=== PATIENT | male | born 1970 | race African-American/Black ===

== ENCOUNTER 2016-12-26 21:50 | Emergency (ER) | payer OTHER ==
[~2016-12-26] VITALS: Ht 167.6 cm; Wt 86.3 kg
[~2016-12-26 21:50] MED LIST: /MOXI40TA OR; AMLO10TAB OR; FLON0.05; HYDR25TA6 OR
[2016-12-26] MEDS ORDERED: LOSA25TA8 PO (22:06)
[2016-12-26] MEDS ORDERED: TOPR25TA PO (22:06)
[2016-12-26] MEDS ORDERED: CLON-412 PO (22:12)
[2016-12-26] MEDS ORDERED: CHLO25TA GT (22:12)
[2016-12-26] MEDS ORDERED: ASPI325T24 PO (22:12)
[2016-12-26] MEDS ORDERED: KETOROLAC 30 MG/ML VIAL (J1885) IV ONE (22:30)
[2016-12-26] MEDS ORDERED: cloNIDine 0.2 MG TAB PO ONE (22:30)
[2016-12-26 23:05] VITALS: BP 217/127
[2016-12-26 23:06] LABS: INR 0.98
[2016-12-26 23:07] LABS: BASO % 0.6 % (0.0-1.0); EOS # 0.4 K/mm3 (0.0-0.50); EOS % 4.7 % (0.0-3.0); LARGE UNSTAINED CELL # 0.2 K/mm3 (0.0-0.4); LARGE UNSTAINED CELL % 2.1 % (0.0-4.0); LYMPH # 3.2 K/mm3 (1.5-4.5); LYMPH % 36.1 % (24.0-44.0); MEAN CORPUSCULAR HEMOGLOBIN 26.6 pg (27.0-33.0); MEAN CORPUSCULAR HGB CONC 33.5 g/dl (32.0-36.5); MEAN CORPUSCULAR VOLUME 79.6 fl (80.0-96.0); MONO # 0.5 K/mm3 (0.0-0.8); MONO % 6.3 % (0.0-5.0); NEUTROPHILS # 4.1 K/mm3 (1.8-7.7); NEUTROPHILS % 50.2 % (36.0-66.0); PLATELET COUNT, AUTOMATED 207 k/mm3 (150-450); RED CELL DISTRIBUTION WIDTH 14.5 % (11.5-14.5); WHITE BLOOD COUNT 8.3 K/mm3 (4.0-10.0)
[2016-12-26 23:37] LABS: ALBUMIN 3.4 GM/DL (3.2-5.2); ALBUMIN/GLOBULIN RATIO 1.03 (1.00-1.93); BILIRUBIN,DIRECT 0.1 MG/DL (0.0-0.2); BILIRUBIN,TOTAL 0.4 MG/DL (0.2-1.0); CALCIUM LEVEL 8.7 MG/DL (8.5-10.1); CREATININE FOR GFR 1.77 MG/DL (0.70-1.30); FREE T4 1.2 NG/DL (0.76-1.46); GLOMERULAR FILTRATION RATE 53.9 (>60); POTASSIUM SERUM 3.3 MEQ/L (3.5-5.1); TOTAL PROTEIN 6.7 GM/DL (6.4-8.2)
[2016-12-27] MEDS ORDERED: ASPIRIN 325 MG TAB PO ONE (00:30)
[2016-12-27 01:08] LABS: ABG BASE EXCESS 1.9 (-2.0-2.0); ABG HCO3 26.5 MEQ/L (22.0-26.0); ABG PARTIAL PRESSURE CO2 41.4 mmHg (35.0-45.0); ABG PARTIAL PRESSURE O2 81.6 mmHg (75.0-100.0); ABG STANDARD HCO3 26.1 MEQ/L (22.0-26.0); ABG TOTAL CO2 27.8 MEQ/L (22.0-29.0); ABG pH (ARTERIAL) 7.424 UNITS (7.350-7.450)
[2016-12-27] MEDS ORDERED: NS 500 ML IV ONE (02:15)
[2016-12-27 02:29] VITALS: BP 166/98
[2016-12-27] MEDS ORDERED: KETO10TAB PO (02:37)
--- NOTE | 2016-12-27 07:35 | ECGEPIP ---
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
--- NOTE | 2016-12-27 07:57 | ECGEPIP ---
Stationary ECG Study [facility] - ED Test Date: 2016-12-27 Pat Name: SIS MIRANDA Department: Room: - Gender: M Manager Science: lurdes : 1970 Requested By: NANCY MCGOVERN Order Number: [id number] Reading MD: Anju Barragan Measurements Intervals [place] Rate: 74 P: 29 CO: 175 QRS: -17 QRSD: 89 T: 184 QT: 403 QTc: 447 Interpretive Statements SINUS RHYTHM S1-S2-S3 PATTERN, CONSISTENT WITH PULMONARY DISEASE, RVH, OR NORMAL VARIANT LEFT VENTRICULAR HYPERTROPHY AND ST-T CHANGE VS ISCHEMIA DECREASED RATE 12/26/16 22:21 Electronically Signed On 12-27-2016 7:57:37 EDT by Anju Barragan
--- NOTE | 2016-12-27 08:23 | REP ---
Portable chest x-ray: Single view. History: Chest pain. Comparison study: May 30, 2014. Findings: The lungs are well inflated and clear. Pleural angles are sharp. Heart size is normal. Pulmonary vasculature is not increased. No significant bony abnormality is seen. Impression: Negative portable chest. Signed by David Burden MD 12/27/2016 08:14 A
== END 2016-12-27 02:50 | disposition home or self-care (01) ==
LOC: M ED 21:50
DX: R07.89 Other chest pain (principal); I10 Essential (primary) hypertension; R07.1 Chest pain on breathing; Z79.82 Long term (current) use of aspirin; Z79.899 Other long term (current) drug therapy; Z88.0 Allergy status to penicillin
CPT/HCPCS: 36415; 71010; 80048; 80076; 82550; 82553; 82803; 83690; 83880; 84439; 84443; 85025; 85610; 85730; 93005; 93041; 94760; 96360; 96374; 99285; J1885

== ENCOUNTER → 2019-09-24 | Outpatient (CLI) | payer OTHER ==
[~2019-09-24] MED LIST changes: -/MOXI40TA OR; +ASPI-255 PO; +AVEL1TAB2 OR; +CHLO25TA GT; +CLON-412 PO; +KETO10TAB PO; +LOSA25TA14 PO; +PROHANCE 279.3MG/ML 15ML VIAL As Ordered ONE; +PROHANCE 279.3MG/ML 5ML VIAL As Ordered ONE; +TOPR25TA PO
--- NOTE | 2019-09-24 17:52 | REP ---
MRI STUDY OF THE SOFT TISSUES OF THE NECK WITHOUT AND WITH IV CONTRAST: HISTORY: Neoplasm of unspecified behavior. Rule out midline lipoma versus other posterior neck mass. GADOLINIUM ENHANCEMENT DOSE: 10 mL of intravenous ProHance. MRI FINDINGS: Skin markers are affixed to the skin at the site of the palpable lump. This is just to the left of midline in the posterior neck soft tissues. In this location, there is a subcutaneous nodule measuring 1.1 x 0.9 x 0.8 cm. There is as a low T1 low T2 signal intensity enhancing margin or capsule. Its interior contains relatively high T1, high T2 signal intensity material. Its margins are smooth. It is not a lipoma. It may be a partially necrotic lymph node. There is an adjacent enhancing lymph node which is normal in size and appearance, 7 mm in diameter. There are some anterior cervical and a few small normal-sized posterior cervical lymph nodes visible in the neck bilaterally. No other soft tissue mass or nodule is appreciated. Skeletal muscle signal intensity is normal. There are mild degenerative disc changes in the cervical spine. There is a right paracentral small disc protrusion at C4-5. Study is otherwise unremarkable. IMPRESSION: Slightly hypertrophied enhancing lymph node possibly centrally necrotic corresponding to palpable abnormality in the left posterior neck. Consider ultrasound-guided needle biopsy procedure. Electronically Signed by David Burden MD 09/24/2019 06:51 P
== END ==
LOC: M RAD 12:49
PROVIDERS: ATTEND Dermatology
DX: D49.2 Neoplasm of unspecified behavior of bone, soft tissue, and skin (principal); N18.3 Chronic kidney disease, stage 3 (moderate)
CPT/HCPCS: 36415; 70543; 80069; A9576

== ENCOUNTER → 2019-09-24 | Outpatient (CLI) | payer OTHER ==
[~2019-09-24] MED LIST changes: -PROHANCE 279.3MG/ML 15ML VIAL As Ordered ONE; -PROHANCE 279.3MG/ML 5ML VIAL As Ordered ONE
[2019-09-24 11:45] LABS: ALBUMIN 3.7 GM/DL (3.2-5.2); CALCIUM LEVEL 8.9 MG/DL (8.5-10.1); CREATININE FOR GFR 2.09 MG/DL (0.70-1.30); GLOMERULAR FILTRATION RATE 36.4 (>60); PHOSPHORUS LEVEL 3.5 MG/DL (2.5-4.9); POTASSIUM SERUM 4.5 MEQ/L (3.5-5.1)
== END ==
LOC: M LAB 10:31
PROVIDERS: ATTEND Internal Medicine Nephrology
DX: N18.3 Chronic kidney disease, stage 3 (moderate) (principal)

== ENCOUNTER → 2022-06-14 | Outpatient (CLI) | payer OTHER ==
[~2022-06-14] MED LIST changes: +LOSA25TA13 PO; -LOSA25TA14 PO
[2022-06-14 16:48] LABS: BASO # 0.1 10^3/uL (0.0-0.2); BASO % 0.6 % (0.0-1.0); EOS # 0.4 10^3/uL (0.0-0.5); EOS % 4.3 % (0.0-3.0); HEMATOCRIT 46.3 % (42.0-52.0); HEMOGLOBIN 14.9 g/dl (13.5-17.5); LYMPH # 3.2 10^3/uL (1.5-5.0); LYMPH % 37.8 % (24.0-44.0); MEAN CORPUSCULAR HGB CONC 32.2 g/dl (32.0-36.5); MEAN CORPUSCULAR VOLUME 80.9 fl (80.0-96.0); MONO # 0.6 10^3/uL (0.0-0.8); MONO % 7.1 % (2.0-8.0); NEUTROPHILS # 4.2 10^3/uL (1.5-8.5); NEUTROPHILS % 49.6 % (36.0-66.0); PLATELET COUNT, AUTOMATED 258 10^3/uL (150-450); RED BLOOD COUNT 5.72 10^6/uL (4.30-6.10); WHITE BLOOD COUNT 8.4 10^3/uL (4.0-10.0)
[2022-06-14 17:10] LABS: ALBUMIN 3.4 G/DL (3.2-5.2); ALKALINE PHOSPHATASE 54 U/L (46-116); ALT/SGPT 22 U/L (7.0-40); AST/SGOT 24 U/L (<34); BILIRUBIN,TOTAL 0.5 MG/DL (0.3-1.2); BLOOD UREA NITROGEN 26 MG/DL (9-23); CALCIUM LEVEL 8.6 MG/DL (8.5-10.1); CARBON DIOXIDE LEVEL 28 MMOL/L (20-31); CHLORIDE LEVEL 102 MMOL/L (98-107); CHOLESTEROL LEVEL 277 MG/DL (<200); CHOLESTEROL RISK RATIO 7.52 (<5); CREATININE FOR GFR 2.55 MG/DL (0.70-1.30); GLOMERULAR FILTRATION RATE 28.6 (>56); GLUCOSE, FASTING 103 MG/DL (60-100); HDL CHOLESTEROL 36.8 MG/DL (>40); NON-HDL-C 240 MG/DL; POTASSIUM SERUM 4.3 MMOL/L (3.5-5.1); SODIUM LEVEL 139 MMOL/L (136-145); TOTAL PROTEIN 6.9 G/DL (5.7-8.2); TRIGLYCERIDES LEVEL 420 MG/DL (<150)
== END ==
LOC: M LAB 06-13 18:31
PROVIDERS: ATTEND Psychiatry & Neurology Neurology
DX: E78.5 Hyperlipidemia, unspecified (principal); E11.9 Type 2 diabetes mellitus without complications; Z86.73 Personal history of transient ischemic attack (TIA), and cerebral infarction without residual deficits

== ENCOUNTER → 2022-06-14 | Outpatient (CLI) | payer OTHER ==
[2022-06-14 16:44] LABS: BASO # 0.1 10^3/uL (0.0-0.2); BASO % 0.8 % (0.0-1.0); EOS # 0.4 10^3/uL (0.0-0.5); EOS % 4.2 % (0.0-3.0); HEMATOCRIT 46.3 % (42.0-52.0); HEMOGLOBIN 14.8 g/dl (13.5-17.5); LYMPH # 3.4 10^3/uL (1.5-5.0); LYMPH % 38.3 % (24.0-44.0); MEAN CORPUSCULAR HEMOGLOBIN 25.9 pg (27.0-33.0); MEAN CORPUSCULAR VOLUME 80.9 fl (80.0-96.0); MONO # 0.6 10^3/uL (0.0-0.8); MONO % 7.3 % (2.0-8.0); NEUTROPHILS # 4.3 10^3/uL (1.5-8.5); NEUTROPHILS % 48.6 % (36.0-66.0); PLATELET COUNT, AUTOMATED 248 10^3/uL (150-450); RED BLOOD COUNT 5.72 10^6/uL (4.30-6.10); WHITE BLOOD COUNT 8.8 10^3/uL (4.0-10.0)
[2022-06-14 16:53] LABS: CREATININE, URINE 130.7 MG/DL; CREATININE,RANDOM URINE 130.7 MG/DL
[2022-06-14 17:07] LABS: MAU/CREAT RATIO 898.2 MCG/MG (0.0-30.0)
[2022-06-14 17:13] LABS: ALBUMIN 3.4 G/DL (3.2-5.2); BILIRUBIN,TOTAL 0.5 MG/DL (0.3-1.2); CALCIUM LEVEL 8.5 MG/DL (8.5-10.1); CREATININE FOR GFR 2.55 MG/DL (0.70-1.30); GLOMERULAR FILTRATION RATE 28.6 (>56); POTASSIUM SERUM 4.3 MMOL/L (3.5-5.1); PTH INTACT 107.1 PG/ML (18.5-88.0); TOTAL PROTEIN 6.9 G/DL (5.7-8.2)
== END ==
LOC: M LAB 06-13 18:24
PROVIDERS: ATTEND Internal Medicine Nephrology
DX: N25.81 Secondary hyperparathyroidism of renal origin (principal); N18.4 Chronic kidney disease, stage 4 (severe); I12.9 Hypertensive chronic kidney disease with stage 1 through stage 4 chronic kidney disease, or unspecified chronic kidney disease

== ENCOUNTER → 2022-09-30 | Outpatient (CLI) | payer OTHER ==
[2022-09-30 16:48] LABS: HEMATOCRIT 49.7 % (42.0-52.0); HEMOGLOBIN 16.1 g/dl (13.5-17.5); MEAN CORPUSCULAR HGB CONC 32.4 g/dl (32.0-36.5); MEAN CORPUSCULAR VOLUME 77.2 fl (80.0-96.0); PLATELET COUNT, AUTOMATED 307 10^3/uL (150-450); RED BLOOD COUNT 6.44 10^6/uL (4.30-6.10); WHITE BLOOD COUNT 11.2 10^3/uL (4.0-10.0)
[2022-09-30 17:18] LABS: ALBUMIN 3.5 G/DL (3.2-5.2); BILIRUBIN,TOTAL 0.4 MG/DL (0.3-1.2); CALCIUM LEVEL 8.9 MG/DL (8.5-10.1); CREATININE FOR GFR 2.98 MG/DL (0.70-1.30); GLOMERULAR FILTRATION RATE 23.9 (>56); POTASSIUM SERUM 3.8 MMOL/L (3.5-5.1)
[2022-09-30 17:20] LABS: PTH INTACT 134.9 PG/ML (18.5-88.0)
== END ==
LOC: M LAB 15:32
PROVIDERS: ATTEND Internal Medicine Nephrology
DX: N18.4 Chronic kidney disease, stage 4 (severe) (principal); I12.9 Hypertensive chronic kidney disease with stage 1 through stage 4 chronic kidney disease, or unspecified chronic kidney disease; N25.81 Secondary hyperparathyroidism of renal origin

== ENCOUNTER → 2022-10-04 | Outpatient (REF) | payer OTHER ==
[2022-10-04 14:03] LABS: CREATININE, URINE 142.3 MG/DL
== END ==
LOC: M LAB REF 11:59
PROVIDERS: ATTEND Internal Medicine Nephrology
DX: N18.4 Chronic kidney disease, stage 4 (severe) (principal); I12.9 Hypertensive chronic kidney disease with stage 1 through stage 4 chronic kidney disease, or unspecified chronic kidney disease; N25.81 Secondary hyperparathyroidism of renal origin

== ENCOUNTER → 2023-02-09 | Outpatient (CLI) | payer OTHER ==
[2023-02-09 15:57] LABS: BASO # 0.1 10^3/uL (0.0-0.2); BASO % 0.6 % (0.0-1.0); EOS # 0.6 10^3/uL (0.0-0.5); EOS % 5.6 % (0.0-3.0); HEMATOCRIT 46.8 % (42.0-52.0); LYMPH # 3.4 10^3/uL (1.5-5.0); LYMPH % 31.1 % (24.0-44.0); MEAN CORPUSCULAR HEMOGLOBIN 24.8 pg (27.0-33.0); MEAN CORPUSCULAR HGB CONC 32.1 g/dl (32.0-36.5); MEAN CORPUSCULAR VOLUME 77.5 fl (80.0-96.0); MONO # 0.9 10^3/uL (0.0-0.8); MONO % 8.6 % (2.0-8.0); NEUTROPHILS # 5.9 10^3/uL (1.5-8.5); NEUTROPHILS % 53.6 % (36.0-66.0); PLATELET COUNT, AUTOMATED 281 10^3/uL (150-450); RED BLOOD COUNT 6.04 10^6/uL (4.30-6.10)
[2023-02-09 16:27] LABS: CREATININE, URINE 58.5 MG/DL; CREATININE,RANDOM URINE 58.5 MG/DL
[2023-02-09 16:31] LABS: ALBUMIN 2.9 G/DL (3.2-5.2); BILIRUBIN,TOTAL 0.4 MG/DL (0.3-1.2); CALCIUM LEVEL 8.4 MG/DL (8.5-10.1); CREATININE FOR GFR 2.72 MG/DL (0.70-1.30); GLOMERULAR FILTRATION RATE 26.4 (>56); POTASSIUM SERUM 4.1 MMOL/L (3.5-5.1); PTH INTACT 270.7 PG/ML (18.5-88.0); TOTAL PROTEIN 6.2 G/DL (5.7-8.2)
[2023-02-09 16:40] LABS: MAU/CREAT RATIO 1958.9 MCG/MG (0.0-30.0)
== END ==
LOC: M LAB 15:11
PROVIDERS: ATTEND Internal Medicine Nephrology
DX: N18.4 Chronic kidney disease, stage 4 (severe) (principal); I12.9 Hypertensive chronic kidney disease with stage 1 through stage 4 chronic kidney disease, or unspecified chronic kidney disease; N25.81 Secondary hyperparathyroidism of renal origin

== ENCOUNTER → 2023-03-10 | Outpatient (CLI) | payer OTHER ==
[2023-03-10 15:36] LABS: HEMATOCRIT 50.4 % (42.0-52.0); HEMOGLOBIN 16.4 g/dl (13.5-17.5); MEAN CORPUSCULAR HGB CONC 32.5 g/dl (32.0-36.5); MEAN CORPUSCULAR VOLUME 76.8 fl (80.0-96.0); PLATELET COUNT, AUTOMATED 253 10^3/uL (150-450); RED BLOOD COUNT 6.56 10^6/uL (4.30-6.10); WHITE BLOOD COUNT 11.1 10^3/uL (4.0-10.0)
[2023-03-10 16:08] LABS: BILIRUBIN,TOTAL 0.3 MG/DL (0.3-1.2); CALCIUM LEVEL 9.2 MG/DL (8.5-10.1); CREATININE FOR GFR 2.61 MG/DL (0.70-1.30); GLOMERULAR FILTRATION RATE 27.7 (>56); PHOSPHORUS LEVEL 3.1 MG/DL (2.5-4.9); PTH INTACT 188.7 PG/ML (18.5-88.0); TOTAL PROTEIN 6.7 G/DL (5.7-8.2)
== END ==
LOC: M LAB 14:45
PROVIDERS: ATTEND Internal Medicine Nephrology
DX: N25.81 Secondary hyperparathyroidism of renal origin (principal); N18.4 Chronic kidney disease, stage 4 (severe); I12.9 Hypertensive chronic kidney disease with stage 1 through stage 4 chronic kidney disease, or unspecified chronic kidney disease

== ENCOUNTER → 2023-03-13 | Outpatient (REF) | payer OTHER ==
[~2023-03-13] MED LIST changes: +ATOR40TA75 PO; +ATOR80TA59 PO; +BLOO-76 MC; +CALC1CAP31 PO; +CLOP75TA2 PO; +FENO145T7 PO; +FISH1CAP26 PO; +HYDR-3910 PO; +INSUHUMDS SC; +JARD1TAB3 PO; +LANC1COM MC; +LANTINJ4 SC; +LOSA100T46 PO; +MAGN400T2 PO; +METO1TAB33 PO; +NOVO32MI XX; +POTA10CA60 PO
[2023-03-14 19:36] LABS: CREATININE, URINE 50.2 MG/DL; CREATININE,RANDOM URINE 50.2 MG/DL
== END ==
LOC: M LAB REF 18:20
PROVIDERS: ATTEND Internal Medicine Nephrology
DX: N25.81 Secondary hyperparathyroidism of renal origin (principal); N18.4 Chronic kidney disease, stage 4 (severe); I12.9 Hypertensive chronic kidney disease with stage 1 through stage 4 chronic kidney disease, or unspecified chronic kidney disease

== ENCOUNTER 2023-03-16 10:00 | Observation (INO) | payer OTHER ==
[~2023-03-16] VITALS: Ht 167.6 cm; Wt 100.6 kg
[~2023-03-16 10:00] MED LIST changes: -ATOR40TA75 PO; -ATOR80TA59 PO; -BLOO-76 MC; -CALC1CAP31 PO; -CLOP75TA2 PO; -FENO145T7 PO; -FISH1CAP26 PO; -HYDR-3910 PO; -INSUHUMDS SC; -JARD1TAB3 PO; -LANC1COM MC; -LANTINJ4 SC; -LOSA100T46 PO; -MAGN400T2 PO; -METO1TAB33 PO; -NOVO32MI XX; -POTA10CA60 PO
[2023-03-16] MEDS ORDERED: JARD1TAB3 PO (10:22)
[2023-03-16] MEDS ORDERED: POTA10CA60 PO (10:22)
[2023-03-16] MEDS ORDERED: MAGN400T2 PO (10:22)
[2023-03-16] MEDS ORDERED: ATOR40TA75 PO (10:22)
[2023-03-16] MEDS ORDERED: CALC1CAP31 PO (10:22)
[2023-03-16 11:57] LABS: BASO # 0.1 10^3/uL (0.0-0.2); BASO % 0.7 % (0.0-1.0); EOS # 0.5 10^3/uL (0.0-0.5); EOS % 5.1 % (0.0-3.0); HEMATOCRIT 43.6 % (42.0-52.0); LYMPH # 2.7 10^3/uL (1.5-5.0); LYMPH % 30.6 % (24.0-44.0); MEAN CORPUSCULAR HEMOGLOBIN 24.7 pg (27.0-33.0); MEAN CORPUSCULAR HGB CONC 32.1 g/dl (32.0-36.5); MONO # 0.6 10^3/uL (0.0-0.8); MONO % 7.2 % (2.0-8.0); NEUTROPHILS # 4.9 10^3/uL (1.5-8.5); NEUTROPHILS % 55.2 % (36.0-66.0); PLATELET COUNT, AUTOMATED 223 10^3/uL (150-450); RED BLOOD COUNT 5.66 10^6/uL (4.30-6.10); WHITE BLOOD COUNT 8.9 10^3/uL (4.0-10.0)
[2023-03-16 12:08] LABS: INR 0.98; PARTIAL THROMBOPLASTIN TIME 26.1 SECONDS (24.8-34.2); PROTHROMBIN TIME 12.7 SECONDS (12.5-14.5)
[2023-03-16] MEDS ORDERED: HumuLIN R (REGULAR) INSULIN (NovoLIN R) **100U/ML** PER UNIT IV ONE (13:05)
[2023-03-16 13:06] LABS: ALBUMIN 2.7 G/DL (3.2-5.2); ALKALINE PHOSPHATASE 69 U/L (46-116); ALT/SGPT 20 U/L (7.0-40); AST/SGOT 19 U/L (<34); BILIRUBIN,DIRECT < 0.1 MG/DL (<0.4); BILIRUBIN,TOTAL 0.3 MG/DL (0.3-1.2); TOTAL PROTEIN 5.6 G/DL (5.7-8.2)
[2023-03-16] MEDS ORDERED: MED REC IN PROGRESS XX SCH (14:20)
[2023-03-16] MEDS ORDERED: METO1TAB33 PO (14:30)
[2023-03-16] MEDS ORDERED: LOSA100T46 PO (14:30)
[2023-03-16 14:49] LABS: BLOOD UREA NITROGEN 34 MG/DL (9-23); CALCIUM LEVEL 8.7 MG/DL (8.5-10.1); CARBON DIOXIDE LEVEL 24 MMOL/L (20-31); CHLORIDE LEVEL 103 MMOL/L (98-107); CREATININE FOR GFR 2.67 MG/DL (0.70-1.30); GLUCOSE, FASTING 305 MG/DL (60-100); POTASSIUM SERUM 4.4 MMOL/L (3.5-5.1); SODIUM LEVEL 137 MMOL/L (136-145)
[2023-03-16] MEDS ORDERED: GLUCOSE 4GM CHEW TABLET PO PRN (14:50)
[2023-03-16] MEDS ORDERED: DEXTROSE 50% 50ML SYRINGE IV PRN (14:50)
[2023-03-16] MEDS ORDERED: GLUCAGON INJ 1MG VIAL SC PRN (14:50)
[2023-03-16] MEDS ORDERED: HOME MED LIST COMPLETE! XX SCH (14:55)
[2023-03-16 15:43] LABS: CHOLESTEROL LEVEL 315 MG/DL (<200); CHOLESTEROL RISK RATIO 7.57 (<5); HDL CHOLESTEROL 41.6 MG/DL (>40); NON-HDL-C 273.4 MG/DL; TRIGLYCERIDES LEVEL 697 MG/DL (<150)
[2023-03-16 15:55] LABS: ERYTHROCYTE SEDIMENTATION RATE 43 mm/hr (0-20)
[2023-03-16 16:25] VITALS: BP 160/102; TEMP 98.1; O2SAT 100
[2023-03-16 16:32] LABS: HEMOGLOBIN A1c 12.4 % (4.0-6.0)
[2023-03-16 16:38] LABS: PROTHROMBIN TIME 12.9 SECONDS (12.5-14.5)
[2023-03-16] MEDS: CLOPIDOGREL 75 MG TAB PO SCH (18:39)
[2023-03-16] MEDS: INSULIN LISPRO (NovoLOG) PER UNIT SC SCH (18:39)
[2023-03-16] MEDS: NS 1,000 ML IV SCH (18:39)
[2023-03-16 19:49] VITALS: BP 178/108; TEMP 97.8; O2SAT 95
[2023-03-16] MEDS ORDERED: **hydrALAZINE** 10 MG TAB PO ONE (20:15)
[2023-03-16] MEDS: POTASSIUM CHLORIDE 10MEQ SR TABLET PO SCH (20:20)
[2023-03-16] MEDS: HEPARIN SOD (PORCINE) 5000UNITS/ML 1ML VIAL/SYRINGE SQ SCH (20:20)
[2023-03-16] MEDS ORDERED: FENOFIBRATE 145MG TABLET (TRICOR) PO SCH (21:00)
[2023-03-16] MEDS ORDERED: INSULIN LISPRO (NovoLOG) PER UNIT SC SCH (21:00)
[2023-03-16] MEDS ORDERED: LEVEMIR (INSULIN DETEMIR) 1 UNITS/0.01ML SC SCH (21:00)
[2023-03-16 21:11] VITALS: BP 174/102
[2023-03-16 23:05] VITALS: BP 156/90; TEMP 97.5; O2SAT 98
[2023-03-17 03:19] VITALS: BP 166/90; TEMP 97; O2SAT 97
[2023-03-17 06:02] LABS: DRVV SCREEN 41.1 SECONDS
[2023-03-17] MEDS: HEPARIN SOD (PORCINE) 5000UNITS/ML 1ML VIAL/SYRINGE SQ SCH ×2 (06:02→13:18)
[2023-03-17 06:03] LABS: PTT LUPUS TYPE ANTICOAG SCREEN 1.05 (0-1.20)
[2023-03-17 07:19] LABS: BASO # 0.1 10^3/uL (0.0-0.2); BASO % 0.6 % (0.0-1.0); EOS # 0.5 10^3/uL (0.0-0.5); EOS % 5.7 % (0.0-3.0); HEMATOCRIT 43.7 % (42.0-52.0); HEMOGLOBIN 14.2 g/dl (13.5-17.5); LYMPH # 3.3 10^3/uL (1.5-5.0); LYMPH % 34.5 % (24.0-44.0); MEAN CORPUSCULAR HEMOGLOBIN 25.4 pg (27.0-33.0); MEAN CORPUSCULAR HGB CONC 32.5 g/dl (32.0-36.5); MEAN CORPUSCULAR VOLUME 78.2 fl (80.0-96.0); MONO # 0.6 10^3/uL (0.0-0.8); MONO % 6.7 % (2.0-8.0); NEUTROPHILS # 4.9 10^3/uL (1.5-8.5); NEUTROPHILS % 51.3 % (36.0-66.0); PLATELET COUNT, AUTOMATED 236 10^3/uL (150-450); RED BLOOD COUNT 5.59 10^6/uL (4.30-6.10); WHITE BLOOD COUNT 9.5 10^3/uL (4.0-10.0)
[2023-03-17 07:57] LABS: CALCIUM LEVEL 7.9 MG/DL (8.5-10.1); CREATININE FOR GFR 2.6 MG/DL (0.70-1.30); GLOMERULAR FILTRATION RATE 27.8 (>56); POTASSIUM SERUM 4.6 MMOL/L (3.5-5.1)
[2023-03-17 08:23] VITALS: BP 162/110; TEMP 97.4; O2SAT 99
[2023-03-17] MEDS: INSULIN LISPRO (NovoLOG) PER UNIT SC SCH ×2 (08:32→13:19)
[2023-03-17] MEDS: POTASSIUM CHLORIDE 10MEQ SR TABLET PO SCH (08:33)
[2023-03-17] MEDS: CLOPIDOGREL 75 MG TAB PO SCH (08:34)
[2023-03-17] MEDS: NS 1,000 ML IV SCH (08:35)
[2023-03-17] MEDS ORDERED: METOPROLOL SUCC (TopROL XL) 100MG *XL* TAB PO SCH (09:00)
[2023-03-17] MEDS ORDERED: MAGNESIUM OXIDE 400MG TAB (MAG-OX) PO SCH (09:00)
[2023-03-17] MEDS ORDERED: cloNIDine 0.1MG TABLET PO SCH (09:00)
[2023-03-17] MEDS ORDERED: amLODIPine 5 MG TAB PO SCH (09:00)
[2023-03-17] MEDS ORDERED: ENTER DRUG NAME HERE (PATIENT'S OWN MED) PO SCH (09:00)
[2023-03-17] MEDS ORDERED: CALCITRIOL 0.25 MCG CAP (S0169) PO SCH (09:00)
[2023-03-17] MEDS ORDERED: ATORVASTATIN 20 MG TAB PO SCH (09:00)
[2023-03-17] MEDS ORDERED: OMEGA-3 1000MG CAPSULE PO SCH (09:00)
[2023-03-17] MEDS ORDERED: LOSARTAN 50MG TABLET PO SCH (09:00)
[2023-03-17] MEDS ORDERED: BLOO-76 MC (11:15)
[2023-03-17] MEDS ORDERED: LANC1COM MC (11:18)
[2023-03-17] MEDS ORDERED: LANTINJ4 SC (11:20)
[2023-03-17] MEDS ORDERED: INSUHUMDS SC (11:22)
[2023-03-17] MEDS ORDERED: ATOR80TA59 PO (11:29)
[2023-03-17] MEDS ORDERED: FISH1CAP26 PO (11:32)
[2023-03-17] MEDS ORDERED: FENO145T7 PO (11:32)
[2023-03-17 13:03] VITALS: BP 158/110; TEMP 97.6; O2SAT 100
[2023-03-17 13:17] VITALS: BP 158/110
[2023-03-17] MEDS ORDERED: CLOP75TA2 PO (15:16)
[2023-03-17] MEDS ORDERED: HYDR-3910 PO (15:16)
[2023-03-17] MEDS ORDERED: NOVO32MI XX (15:42)
[2023-03-17 16:00] VITALS: BP 152/110; TEMP 97.7; O2SAT 100
[2023-03-17] MEDS ORDERED: LEVEMIR (INSULIN DETEMIR) 1 UNITS/0.01ML SC SCH (21:00)
[2023-03-18 14:08] LABS: ANTINUCLEAR ANTIBODIES DIRECT Negative (Negative)
== END 2023-03-17 17:39 | disposition home or self-care (01) ==
LOC: M ED 10:00 → M ED INP 10:01 → ENRESERV 14:14 → M PCU 16:18
PROVIDERS: ADMIT Internal Medicine; ATTEND Internal Medicine
DX: R47.1 Dysarthria and anarthria (principal); G45.9 Transient cerebral ischemic attack, unspecified; I12.9 Hypertensive chronic kidney disease with stage 1 through stage 4 chronic kidney disease, or unspecified chronic kidney disease; N18.30 Chronic kidney disease, stage 3 unspecified; E11.65 Type 2 diabetes mellitus with hyperglycemia; E78.5 Hyperlipidemia, unspecified; G47.33 Obstructive sleep apnea (adult) (pediatric); E78.1 Pure hyperglyceridemia; Z79.4 Long term (current) use of insulin; Z79.899 Other long term (current) drug therapy; Z88.0 Allergy status to penicillin
CPT/HCPCS: 36415; 70450; 70544; 70547; 70551; 71045; 80047; 80048; 80061; 80076; 81240; 83036; 83090; 83735; 85025; 85300; 85301; 85302; 85305; 85306; 85610; 85652; 85730; 86037; 86038; 86140; 86147; 86235; 87635; 93005; 93041; 93306; 94760; 96372; 96374; 99285; J1815

== ENCOUNTER → 2023-04-10 | Outpatient (CLI) | payer OTHER ==
[~2023-04-10] MED LIST changes: +ATOR40TA75 PO; +ATOR80TA59 PO; +BLOO-76 MC; +CALC1CAP31 PO; +CLOP75TA2 PO; +FENO145T7 PO; +FISH1CAP26 PO; +HYDR-3910 PO; +INSUHUMDS SC; +JARD1TAB3 PO; +LANC1COM MC; +LANTINJ4 SC; +LOSA100T46 PO; +MAGN400T2 PO; +METO1TAB33 PO; +NOVO32MI XX; +POTA10CA60 PO
[2023-04-10 13:57] LABS: BASO # 0.1 10^3/uL (0.0-0.2); BASO % 0.5 % (0.0-1.0); EOS # 0.4 10^3/uL (0.0-0.5); EOS % 3.8 % (0.0-3.0); HEMATOCRIT 44.5 % (42.0-52.0); HEMOGLOBIN 14.2 g/dl (13.5-17.5); LYMPH # 2.6 10^3/uL (1.5-5.0); LYMPH % 26.5 % (24.0-44.0); MEAN CORPUSCULAR HEMOGLOBIN 25.2 pg (27.0-33.0); MEAN CORPUSCULAR HGB CONC 31.9 g/dl (32.0-36.5); MEAN CORPUSCULAR VOLUME 78.9 fl (80.0-96.0); MONO # 0.8 10^3/uL (0.0-0.8); MONO % 8.2 % (2.0-8.0); NEUTROPHILS % 60.5 % (36.0-66.0); PLATELET COUNT, AUTOMATED 216 10^3/uL (150-450); RED BLOOD COUNT 5.64 10^6/uL (4.30-6.10)
[2023-04-10 14:23] LABS: THYROID STIMULATING HORMONE 3.745 uIU/ML (0.55-4.78); TOTAL 25(OH) VITAMIN D 21.8 NG/ML (20.0-100.0)
== END ==
LOC: M LAB 11:10
PROVIDERS: ATTEND Nurse Practitioner Family
DX: R53.83 Other fatigue (principal)

== ENCOUNTER → 2023-07-10 | Outpatient (CLI) | payer OTHER ==
[~2023-07-10] MED LIST changes: -HYDR-3910 PO; +HYDR25TA87 PO
[2023-07-10 12:28] LABS: CALCIUM LEVEL 8.1 MG/DL (8.5-10.1); CHOLESTEROL RISK RATIO 7.21 (<5); CREATININE FOR GFR 2.78 MG/DL (0.70-1.30); GLOMERULAR FILTRATION RATE 25.8 (>56); HDL CHOLESTEROL 33.8 MG/DL (>40); LDL CHOLESTEROL 132.6 MG/DL (<100); NON-HDL-C 210.2 MG/DL; POTASSIUM SERUM 3.6 MMOL/L (3.5-5.1)
== END ==
LOC: M LAB 11:07
PROVIDERS: ATTEND Physician Assistant
DX: E11.65 Type 2 diabetes mellitus with hyperglycemia (principal); E78.5 Hyperlipidemia, unspecified

== ENCOUNTER 2023-10-08 22:30 | Inpatient (IN) | payer OTHER ==
[~2023-10-08] VITALS: Ht 167.6 cm; Wt 102.5 kg
[~2023-10-08 22:30] MED LIST changes: -POTA10CA60 PO; +POTA10CA70 PO
[2023-10-08] MEDS: IPRATROPIUM 0.5MG/ALBUTEROL 2.5MG INH SOL UD 3ML (DUONEB) NEB ONE (23:25)
[2023-10-08 23:33] LABS: VENOUS BASE EXCESS -2.6 (-2.0-2.0); VENOUS HCO3 23.3 MMOL/L (23.0-27.0); VENOUS O2 SATURATION 70.7 % (60.0-80.0); VENOUS PARTIAL PRESSURE CO2 44.1 mmHg (38.0-50.0); VENOUS PARTIAL PRESSURE O2 37.9 mmHg (30.0-50.0); VENOUS STANDARD HCO3 21.7 MMOL/L; VENOUS TOTAL CO2 24.6 MMOL/L (24.0-28.0)
[2023-10-08] MEDS: MORPHINE 2 MG/ML 1ML VIAL IV PRN (23:40)
[2023-10-08 23:43] LABS: BASO # 0.1 10^3/uL (0.0-0.2); BASO % 0.5 % (0.0-1.0); EOS # 0.4 10^3/uL (0.0-0.5); EOS % 3.6 % (0.0-3.0); HEMATOCRIT 42.4 % (42.0-52.0); HEMOGLOBIN 13.9 g/dl (13.5-17.5); LYMPH # 1.1 10^3/uL (1.5-5.0); LYMPH % 10.5 % (24.0-44.0); MEAN CORPUSCULAR HGB CONC 32.8 g/dl (32.0-36.5); MEAN CORPUSCULAR VOLUME 76.3 fl (80.0-96.0); MONO # 0.8 10^3/uL (0.0-0.8); MONO % 6.9 % (2.0-8.0); NEUTROPHILS # 8.5 10^3/uL (1.5-8.5); NEUTROPHILS % 77.9 % (36.0-66.0); PLATELET COUNT, AUTOMATED 261 10^3/uL (150-450); RED BLOOD COUNT 5.56 10^6/uL (4.30-6.10); WHITE BLOOD COUNT 10.9 10^3/uL (4.0-10.0)
[2023-10-08 23:55] LABS: INR 1.1; PROTHROMBIN TIME 13.9 SECONDS (12.5-14.5)
[2023-10-09 00:05] LABS: ALBUMIN 2.5 G/DL (3.2-5.2); ALKALINE PHOSPHATASE 67 U/L (46-116); ALT/SGPT 18 U/L (7.0-40); AST/SGOT 12 U/L (<34); BILIRUBIN,DIRECT < 0.1 MG/DL (<0.4); BILIRUBIN,TOTAL 0.6 MG/DL (0.3-1.2); BLOOD UREA NITROGEN 28 MG/DL (9-23); CALCIUM LEVEL 7.9 MG/DL (8.5-10.1); CARBON DIOXIDE LEVEL 23 MMOL/L (20-31); CHLORIDE LEVEL 105 MMOL/L (98-107); CK-MB VALUE MASS 4.2 NG/ML (<3.6); CPK CREATINE PHOSPHOKINASE 731 U/L (46-171); CREATININE FOR GFR 3.78 MG/DL (0.70-1.30); GLOMERULAR FILTRATION RATE 18.1 (>56); GLUCOSE, FASTING 166 MG/DL (60-100); MB/CK RELATIVE INDEX 0.57 (< OR =4); POTASSIUM SERUM 3.3 MMOL/L (3.5-5.1); SODIUM LEVEL 137 MMOL/L (136-145); TOTAL PROTEIN 5.7 G/DL (5.7-8.2)
[2023-10-09 00:07] LABS: THYROID STIMULATING HORMONE 2.983 uIU/ML (0.55-4.78)
[2023-10-09 00:17] LABS: PROCALCITONIN 0.22 ng/ml
[2023-10-09] MEDS: hydrALAZINE 20MG/ML 1ML VIAL IV STA (01:52)
[2023-10-09] MEDS: LOSARTAN 50MG TABLET PO ONE (01:52)
[2023-10-09] MEDS: METOPROLOL SUCC (TopROL XL) 100MG *XL* TAB PO ONE (01:53)
[2023-10-09 02:37] LABS: CK-MB VALUE MASS 3.4 NG/ML (<3.6)
[2023-10-09 02:45] LABS: MB/CK RELATIVE INDEX 0.4 (< OR =4)
[2023-10-09] MEDS ORDERED: ACETAMINOPHEN TAB 650MG DOSE (2X325MG) PO PRN (04:10)
[2023-10-09] MEDS ORDERED: HYDROMORPHONE HCL 0.5 MG/ 0.5 ML SYRINGE IV PRN ×3 (04:15→05:30)
[2023-10-09] MEDS ORDERED: GLUCAGON INJ 1MG VIAL SC PRN ×2 (04:15→12:00)
[2023-10-09] MEDS ORDERED: GLUCOSE 4 GM CHEW PO PRN ×2 (04:15→12:00)
[2023-10-09] MEDS ORDERED: DEXTROSE 50% 50ML SYRINGE IV PRN ×2 (04:15→12:00)
[2023-10-09] MEDS ORDERED: IPRATROPIUM 0.5MG/ALBUTEROL 2.5MG INH SOL UD 3ML (DUONEB) NEB PRN (04:20)
[2023-10-09] MEDS: FUROSEMIDE 40MG/4ML VIAL IV STA (04:30)
[2023-10-09] MEDS: NITROGLYCERIN 2% OINT 1 GM *U/D* PKT TOP ONE (04:30)
[2023-10-09] MEDS: NS 500 ML IV ONE (04:32)
[2023-10-09] MEDS: POTASSIUM CHLORIDE 10% LIQ 20MEQ/15ML UDC PO ONE (04:37)
[2023-10-09] MEDS: POTASSIUM CHLORIDE 10MEQ SR TABLET PO ONE (04:43)
[2023-10-09] MEDS ORDERED: ATOR80TA59 PO (04:48)
[2023-10-09] MEDS ORDERED: FENO145T7 PO (04:48)
[2023-10-09] MEDS ORDERED: INSU100I24 INJ (04:48)
[2023-10-09] MEDS ORDERED: FISH1CAP32 PO (04:48)
[2023-10-09] MEDS ORDERED: HYDR25TA88 PO (04:48)
[2023-10-09] MEDS ORDERED: LANTINJ4 SC (04:48)
[2023-10-09] MEDS ORDERED: CHLO125TA PO (04:51)
[2023-10-09] MEDS ORDERED: ERGO500029 PO (04:51)
[2023-10-09] MEDS ORDERED: HOME MED LIST COMPLETE! XX SCH (04:55)
[2023-10-09] MEDS: BENZONATATE 100MG CAPSULE PO PRN (06:12)
[2023-10-09] MEDS: ACETAMINOPHEN TAB 650MG DOSE (2X325MG) PO PRN (06:13)
[2023-10-09] MEDS: hydrALAZINE 20MG/ML 1ML VIAL IV PRN (06:18)
[2023-10-09] MEDS: HEPARIN SOD (PORCINE) 5000UNITS/ML 1ML VIAL/SYRINGE SC SCH (06:19)
[2023-10-09 06:48] VITALS: BP 176/85; TEMP 99.4; O2SAT 96
[2023-10-09] MEDS: HYDROMORPHONE HCL 0.5 MG/ 0.5 ML SYRINGE IV PRN (06:57)
[2023-10-09 07:59] LABS: CALCIUM LEVEL 8.3 MG/DL (8.5-10.1); CREATININE FOR GFR 3.56 MG/DL (0.70-1.30); GLOMERULAR FILTRATION RATE 23.5 (>56); POTASSIUM SERUM 3.8 MMOL/L (3.5-5.1)
[2023-10-09 08:37] VITALS: BP 180/97; TEMP 98.8; O2SAT 95
[2023-10-09] MEDS: ASPIRIN 81MG ENTERIC TABLET PO SCH (09:02)
[2023-10-09] MEDS: **hydrALAZINE HCL** 25 MG TAB PO SCH (09:02)
[2023-10-09] MEDS: ATORVASTATIN 20 MG TAB PO SCH (09:02)
[2023-10-09] MEDS: cloNIDine 0.1MG TABLET PO SCH (09:02)
[2023-10-09] MEDS: DOCUSATE SODIUM 100MG CAPSULE PO SCH (09:02)
[2023-10-09] MEDS: CALCITRIOL 0.25 MCG CAP (S0169) PO SCH (09:02)
[2023-10-09] MEDS: OMEGA-3 1000MG CAPSULE PO SCH (09:03)
[2023-10-09] MEDS: INSULIN LISPRO (NovoLOG) PER UNIT SC SCH ×3 (09:04→20:10)
[2023-10-09] MEDS: LEVEMIR (INSULIN DETEMIR) 1 UNITS/0.01ML SC SCH (09:04)
[2023-10-09] MEDS: MAGNESIUM OXIDE 400MG TAB (MAG-OX) PO SCH (09:45)
[2023-10-09] MEDS: cloNIDine 0.1MG TABLET PO ONE (10:31)
[2023-10-09 12:00] VITALS: BP 146/89; TEMP 98.6; O2SAT 97
[2023-10-09 12:34] LABS: CHOLESTEROL RISK RATIO 7.46 (<5); HDL CHOLESTEROL 47.8 MG/DL (>40); NON-HDL-C 309.2 MG/DL; PHOSPHORUS LEVEL 3.2 MG/DL (2.5-4.9)
[2023-10-09 12:40] VITALS: BP 180/90
[2023-10-09 12:55] LABS: HEMOGLOBIN A1c 9.7 % (4.0-6.0)
[2023-10-09] MEDS: **hydrALAZINE** 50 MG TAB PO SCH (12:55)
[2023-10-09] MEDS ORDERED: PILL CUTTER 1 EACH XX ONE (13:45)
[2023-10-09] MEDS: HYDROmorphone 2 MG TAB PO PRN (13:52)
[2023-10-09 16:00] VITALS: BP 166/100; TEMP 98.7; O2SAT 96
[2023-10-09] MEDS: cloNIDine 0.2 MG TAB PO SCH (16:08)
[2023-10-09 20:00] VITALS: BP 138/82; TEMP 98.2; O2SAT 98
[2023-10-09] MEDS: FENOFIBRATE 145MG TABLET (TRICOR) PO SCH (20:38)
[2023-10-09] MEDS: METOPROLOL SUCC (TopROL XL) 100MG *XL* TAB PO SCH (20:40)
[2023-10-09] MEDS ORDERED: LEVEMIR (INSULIN DETEMIR) 1 UNITS/0.01ML SC SCH (21:00)
[2023-10-09] MEDS ORDERED: INSULIN LISPRO (NovoLOG) PER UNIT SC SCH (21:00)
[2023-10-09] MEDS: PERCOCET 5MG/325MG TAB PO PRN (22:38)
[2023-10-10] VITALS (9 sets, daily range): BP systolic 114–133; BP diastolic 67–81; TEMP 96.8–98.3; O2SAT 95–98
[2023-10-10 05:36] LABS: BASO % 0.4 % (0.0-1.0); EOS # 0.3 10^3/uL (0.0-0.5); EOS % 3.1 % (0.0-3.0); HEMATOCRIT 40.7 % (42.0-52.0); HEMOGLOBIN 13.3 g/dl (13.5-17.5); LYMPH # 2.2 10^3/uL (1.5-5.0); LYMPH % 24.3 % (24.0-44.0); MEAN CORPUSCULAR HEMOGLOBIN 24.8 pg (27.0-33.0); MEAN CORPUSCULAR HGB CONC 32.7 g/dl (32.0-36.5); MEAN CORPUSCULAR VOLUME 75.8 fl (80.0-96.0); MONO # 1.3 10^3/uL (0.0-0.8); MONO % 14.6 % (2.0-8.0); NEUTROPHILS # 5.1 10^3/uL (1.5-8.5); PLATELET COUNT, AUTOMATED 271 10^3/uL (150-450); RED BLOOD COUNT 5.37 10^6/uL (4.30-6.10)
[2023-10-10 06:07] LABS: ALBUMIN 2.2 G/DL (3.2-5.2); BILIRUBIN,TOTAL 0.6 MG/DL (0.3-1.2); CALCIUM LEVEL 8.1 MG/DL (8.5-10.1); CREATININE FOR GFR 3.84 MG/DL (0.70-1.30); GLOMERULAR FILTRATION RATE 21.5 (>56); MAGNESIUM LEVEL 2.1 MG/DL (1.8-2.4); POTASSIUM SERUM 3.6 MMOL/L (3.5-5.1); TOTAL PROTEIN 5.4 G/DL (5.7-8.2)
[2023-10-10] MEDS ORDERED: METOPROLOL SUCC (TopROL XL) 100MG *XL* TAB PO SCH (09:00)
[2023-10-10] MEDS: POTASSIUM CHLORIDE 10MEQ SR TABLET PO ONE (12:44)
[2023-10-11] VITALS (8 sets, daily range): BP systolic 109–124; BP diastolic 58–72; TEMP 96.6–98.4; O2SAT 94–99
[2023-10-11 05:56] LABS: BASO % 0.5 % (0.0-1.0); EOS # 0.3 10^3/uL (0.0-0.5); EOS % 3.5 % (0.0-3.0); HEMATOCRIT 43.9 % (42.0-52.0); HEMOGLOBIN 13.8 g/dl (13.5-17.5); LYMPH # 2.4 10^3/uL (1.5-5.0); MEAN CORPUSCULAR HEMOGLOBIN 24.3 pg (27.0-33.0); MEAN CORPUSCULAR HGB CONC 31.4 g/dl (32.0-36.5); MEAN CORPUSCULAR VOLUME 77.2 fl (80.0-96.0); MONO % 12.1 % (2.0-8.0); NEUTROPHILS # 4.3 10^3/uL (1.5-8.5); NEUTROPHILS % 53.3 % (36.0-66.0); PLATELET COUNT, AUTOMATED 290 10^3/uL (150-450); RED BLOOD COUNT 5.69 10^6/uL (4.30-6.10)
[2023-10-11 06:27] LABS: C REACTIVE PROTEIN QUANTITATIV 3.4 MG/DL (<1.0)
[2023-10-11 06:28] LABS: ALBUMIN 2.2 G/DL (3.2-5.2); BILIRUBIN,TOTAL 0.4 MG/DL (0.3-1.2); CALCIUM LEVEL 8.2 MG/DL (8.5-10.1); CREATININE FOR GFR 3.77 MG/DL (0.70-1.30); MAGNESIUM LEVEL 2.4 MG/DL (1.8-2.4); POTASSIUM SERUM 4.1 MMOL/L (3.5-5.1); TOTAL PROTEIN 5.6 G/DL (5.7-8.2)
[2023-10-11] MEDS: CHLORTHALIDONE 25 MG TAB PO SCH (12:36)
[2023-10-11] MEDS: **hydrALAZINE** 50 MG TAB PO SCH (15:27)
[2023-10-12] VITALS (7 sets, daily range): BP systolic 111–130; BP diastolic 68–80; TEMP 96.6–97.9; O2SAT 96–100
[2023-10-12 05:40] LABS: BASO % 0.4 % (0.0-1.0); EOS # 0.3 10^3/uL (0.0-0.5); EOS % 3.7 % (0.0-3.0); HEMATOCRIT 41.8 % (42.0-52.0); HEMOGLOBIN 13.3 g/dl (13.5-17.5); LYMPH # 2.9 10^3/uL (1.5-5.0); LYMPH % 34.2 % (24.0-44.0); MEAN CORPUSCULAR HEMOGLOBIN 24.8 pg (27.0-33.0); MEAN CORPUSCULAR HGB CONC 31.8 g/dl (32.0-36.5); MONO # 0.7 10^3/uL (0.0-0.8); MONO % 8.3 % (2.0-8.0); NEUTROPHILS # 4.5 10^3/uL (1.5-8.5); PLATELET COUNT, AUTOMATED 291 10^3/uL (150-450); RED BLOOD COUNT 5.36 10^6/uL (4.30-6.10); WHITE BLOOD COUNT 8.5 10^3/uL (4.0-10.0)
[2023-10-12 06:13] LABS: C REACTIVE PROTEIN QUANTITATIV 1.4 MG/DL (<1.0)
[2023-10-12 06:14] LABS: CALCIUM LEVEL 8.1 MG/DL (8.5-10.1); CREATININE FOR GFR 3.72 MG/DL (0.70-1.30); GLOMERULAR FILTRATION RATE 22.3 (>56); MAGNESIUM LEVEL 2.3 MG/DL (1.8-2.4); POTASSIUM SERUM 3.7 MMOL/L (3.5-5.1)
[2023-10-12] MEDS: TORSEMIDE 20 MG TAB PO ONE (12:19)
[2023-10-12] MEDS: cloNIDine 0.2 MG TAB PO SCH (20:18)
[2023-10-13 03:50] VITALS: BP 118/80; TEMP 96.9; O2SAT 97
[2023-10-13 06:47] LABS: CALCIUM LEVEL 8.4 MG/DL (8.5-10.1); GLOMERULAR FILTRATION RATE 20.5 (>56); MAGNESIUM LEVEL 2.2 MG/DL (1.8-2.4); POTASSIUM SERUM 3.6 MMOL/L (3.5-5.1)
[2023-10-13 07:53] VITALS: BP 126/85; TEMP 97; O2SAT 99
[2023-10-13] MEDS: SPIRONOLACTONE 25 MG TAB PO SCH (08:32)
[2023-10-13] MEDS: TORSEMIDE 20 MG TAB PO SCH (08:33)
[2023-10-13 12:29] VITALS: BP 118/69; TEMP 97; O2SAT 99
[2023-10-13] MEDS ORDERED: CLON0.2T PO (14:52)
[2023-10-13] MEDS ORDERED: ASPI81TAEC PO (14:52)
[2023-10-13] MEDS ORDERED: TORS20TA2 PO (14:52)
[2023-10-13] MEDS ORDERED: METO1TAB33 PO (14:52)
[2023-10-13] MEDS ORDERED: HYDR50TA46 PO (14:52)
== END 2023-10-13 17:08 | disposition home or self-care (01) | DRG 292 ==
LOC: M ED 22:30 → M ED INP 10-09 04:08 → M PCU 10-09 07:02
PROVIDERS: ADMIT Preventive Medicine Undersea and Hyperbaric Medicine; ATTEND Hospitalist
DX: I13.0 Hypertensive heart and chronic kidney disease with heart failure and stage 1 through stage 4 chronic kidney disease, or unspecified chronic kidney disease (principal); I50.32 Chronic diastolic (congestive) heart failure; N17.9 Acute kidney failure, unspecified; J90 Pleural effusion, not elsewhere classified; I16.1 Hypertensive emergency; N18.32 Chronic kidney disease, stage 3b; E87.6 Hypokalemia; E11.9 Type 2 diabetes mellitus without complications; Z79.4 Long term (current) use of insulin; Z86.73 Personal history of transient ischemic attack (TIA), and cerebral infarction without residual deficits; J06.9 Acute upper respiratory infection, unspecified; E66.9 Obesity, unspecified; Z68.36 Body mass index [BMI] 36.0-36.9, adult; Z79.899 Other long term (current) drug therapy; Z88.0 Allergy status to penicillin; K44.9 Diaphragmatic hernia without obstruction or gangrene; E78.5 Hyperlipidemia, unspecified; Z95.2 Presence of prosthetic heart valve; G47.33 Obstructive sleep apnea (adult) (pediatric)

== ENCOUNTER → 2023-10-27 | Outpatient (REF) | payer OTHER ==
[~2023-10-27] MED LIST changes: +ASPI81TAEC PO; +CHLO125TA PO; +CLON0.2T PO; +ERGO500029 PO; +FISH1CAP32 PO; +HYDR25TA88 PO; +HYDR50TA46 PO; +INSU100I24 INJ; +TORS20TA2 PO
[2023-10-27 13:28] LABS: BASO # 0.1 10^3/uL (0.0-0.2); BASO % 0.5 % (0.0-1.0); EOS # 0.5 10^3/uL (0.0-0.5); EOS % 4.7 % (0.0-3.0); HEMOGLOBIN 13.3 g/dl (13.5-17.5); LYMPH # 3.1 10^3/uL (1.5-5.0); LYMPH % 27.7 % (24.0-44.0); MEAN CORPUSCULAR HEMOGLOBIN 24.4 pg (27.0-33.0); MEAN CORPUSCULAR HGB CONC 31.7 g/dl (32.0-36.5); MEAN CORPUSCULAR VOLUME 77.1 fl (80.0-96.0); MONO # 0.8 10^3/uL (0.0-0.8); MONO % 7.5 % (2.0-8.0); NEUTROPHILS # 6.5 10^3/uL (1.5-8.5); NEUTROPHILS % 59.2 % (36.0-66.0); PLATELET COUNT, AUTOMATED 416 10^3/uL (150-450); RED BLOOD COUNT 5.45 10^6/uL (4.30-6.10)
[2023-10-27 13:43] LABS: HEMOGLOBIN A1c 8.9 % (4.0-6.0)
[2023-10-27 14:06] LABS: ALBUMIN 2.7 G/DL (3.2-5.2); BILIRUBIN,TOTAL 0.3 MG/DL (0.3-1.2); CALCIUM LEVEL 8.3 MG/DL (8.5-10.1); CREATININE FOR GFR 3.72 MG/DL (0.70-1.30); GLOMERULAR FILTRATION RATE 22.3 (>56); MAGNESIUM LEVEL 1.8 MG/DL (1.8-2.4); PHOSPHORUS LEVEL 3.3 MG/DL (2.5-4.9); POTASSIUM SERUM 4.2 MMOL/L (3.5-5.1); TOTAL PROTEIN 6.1 G/DL (5.7-8.2)
== END ==
LOC: M LAB REF 11:44
PROVIDERS: ATTEND Physician Assistant
DX: I11.0 Hypertensive heart disease with heart failure (principal); N17.9 Acute kidney failure, unspecified; I50.9 Heart failure, unspecified; E11.65 Type 2 diabetes mellitus with hyperglycemia

== ENCOUNTER → 2023-11-27 | Outpatient (REF) | payer OTHER ==
[2023-11-27 18:50] LABS: CREATININE, URINE 159.8 MG/DL
[2023-11-27 19:01] LABS: MAU/CREAT RATIO 2146.4 MCG/MG (0.0-30.0)
== END ==
LOC: M LAB REF 16:16
PROVIDERS: ATTEND Physician Assistant
DX: E11.65 Type 2 diabetes mellitus with hyperglycemia (principal)

== ENCOUNTER 2024-01-11 16:01 | Emergency (ER) | payer OTHER ==
[~2024-01-11] VITALS: Ht 170.2 cm; Wt 95.7 kg
[2024-01-11 16:53] VITALS: BP 222/129
[2024-01-11] MEDS: **hydrALAZINE** 50 MG TAB PO ONE (16:53)
[2024-01-11] MEDS: METOPROLOL SUCC (TopROL XL) 100MG *XL* TAB PO ONE (16:53)
[2024-01-11] MEDS: cloNIDine 0.2 MG TAB PO ONE (16:54)
[2024-01-11] MEDS: TORSEMIDE 20 MG TAB PO ONE (16:54)
[2024-01-11 17:15] LABS: HEMATOCRIT 44.8 % (42.0-52.0); HEMOGLOBIN 14.6 g/dl (13.5-17.5); MEAN CORPUSCULAR HEMOGLOBIN 24.9 pg (27.0-33.0); MEAN CORPUSCULAR HGB CONC 32.6 g/dl (32.0-36.5); MEAN CORPUSCULAR VOLUME 76.3 fl (80.0-96.0); PLATELET COUNT, AUTOMATED 272 10^3/uL (150-450); RED BLOOD COUNT 5.87 10^6/uL (4.30-6.10); WHITE BLOOD COUNT 9.6 10^3/uL (4.0-10.0)
[2024-01-11 17:50] LABS: CALCIUM LEVEL 8.1 MG/DL (8.5-10.1); CREATININE FOR GFR 3.58 MG/DL (0.70-1.30); GLOMERULAR FILTRATION RATE 23.2 (>56); POTASSIUM SERUM 3.6 MMOL/L (3.5-5.1)
[2024-01-11] MEDS ORDERED: TORS20TA2 PO (18:20)
[2024-01-11 19:06] VITALS: BP 141/84; TEMP 96.6; O2SAT 97
== END 2024-01-11 19:09 | disposition home or self-care (01) ==
LOC: M ED 16:01
DX: N18.4 Chronic kidney disease, stage 4 (severe) (principal); I10 Essential (primary) hypertension; Z91.148 Patient's other noncompliance with medication regimen for other reason; G47.33 Obstructive sleep apnea (adult) (pediatric); Z90.89 Acquired absence of other organs; Z88.0 Allergy status to penicillin; Z91.048 Other nonmedicinal substance allergy status; Z79.82 Long term (current) use of aspirin; Z79.4 Long term (current) use of insulin; Z79.899 Other long term (current) drug therapy

== ENCOUNTER 2024-05-15 17:50 | Emergency (ER) | payer OTHER ==
[~2024-05-15] VITALS: Ht 170.2 cm; Wt 94.5 kg
[2024-05-15 17:52] VITALS: BP 150/65; TEMP 96.6; O2SAT 98
[2024-05-15 20:26] LABS: BASO # 0.1 10^3/uL (0.0-0.2); BASO % 0.6 % (0.0-1.0); EOS % 7.6 % (0.0-3.0); HEMATOCRIT 41.2 % (42.0-52.0); HEMOGLOBIN 12.9 g/dl (13.5-17.5); LYMPH # 2.9 10^3/uL (1.5-5.0); MEAN CORPUSCULAR HEMOGLOBIN 23.7 pg (27.0-33.0); MEAN CORPUSCULAR HGB CONC 31.3 g/dl (32.0-36.5); MEAN CORPUSCULAR VOLUME 75.6 fl (80.0-96.0); MONO # 0.6 10^3/uL (0.0-0.8); MONO % 4.6 % (2.0-8.0); NEUTROPHILS % 63.6 % (36.0-66.0); PLATELET COUNT, AUTOMATED 336 10^3/uL (150-450); RED BLOOD COUNT 5.45 10^6/uL (4.30-6.10); WHITE BLOOD COUNT 12.6 10^3/uL (4.0-10.0)
[2024-05-15 20:56] LABS: CALCIUM LEVEL 8.3 MG/DL (8.5-10.1); CREATININE FOR GFR 4.98 MG/DL (0.70-1.30); GLOMERULAR FILTRATION RATE 15.9 (>56); POTASSIUM SERUM 3.6 MMOL/L (3.5-5.1)
== END 2024-05-15 23:39 | disposition left against medical advice (07) ==
LOC: M ED 17:50
DX: Z53.21 Procedure and treatment not carried out due to patient leaving prior to being seen by health care provider (principal)

== ENCOUNTER 2024-07-05 15:48 | Emergency (ER) | payer OTHER ==
[~2024-07-05] VITALS: Ht 170.2 cm; Wt 91.6 kg
[2024-07-05 16:00] VITALS: TEMP 96.5
[2024-07-05 16:52] LABS: BASO # 0.1 10^3/uL (0.0-0.2); BASO % 0.7 % (0.0-1.0); EOS # 0.7 10^3/uL (0.0-0.5); EOS % 6.1 % (0.0-3.0); HEMATOCRIT 39.7 % (42.0-52.0); HEMOGLOBIN 12.6 g/dl (13.5-17.5); LYMPH # 2.5 10^3/uL (1.5-5.0); LYMPH % 23.6 % (24.0-44.0); MEAN CORPUSCULAR HEMOGLOBIN 23.5 pg (27.0-33.0); MEAN CORPUSCULAR HGB CONC 31.7 g/dl (32.0-36.5); MEAN CORPUSCULAR VOLUME 73.9 fl (80.0-96.0); MONO # 0.6 10^3/uL (0.0-0.8); MONO % 5.9 % (2.0-8.0); NEUTROPHILS # 6.8 10^3/uL (1.5-8.5); PLATELET COUNT, AUTOMATED 337 10^3/uL (150-450); RED BLOOD COUNT 5.37 10^6/uL (4.30-6.10); WHITE BLOOD COUNT 10.7 10^3/uL (4.0-10.0)
[2024-07-05 17:14] LABS: CALCIUM LEVEL 8.4 MG/DL (8.5-10.1); CK-MB VALUE MASS 4.3 NG/ML (<3.6); CREATININE FOR GFR 5.45 MG/DL (0.70-1.30); GLOMERULAR FILTRATION RATE 14.3 (>56); MB/CK RELATIVE INDEX 0.92 (< OR =4); POTASSIUM SERUM 3.3 MMOL/L (3.5-5.1)
[2024-07-05 17:19] LABS: INR 1.07; PROTHROMBIN TIME 14.2 SECONDS (12.5-14.5)
[2024-07-05] MEDS ORDERED: predniSONE 20 MG TAB PO ONE (20:50)
[2024-07-05] MEDS ORDERED: PRED20TA PO (20:51)
[2024-07-05 21:00] VITALS: BP 176/108; O2SAT 98
[2024-07-05 21:06] VITALS: BP 176/108
[2024-07-05] MEDS: cloNIDine 0.1MG TABLET PO ONE (21:06)
[2024-07-05] MEDS: predniSONE 20 MG TAB PO ONE (21:07)
== END 2024-07-05 21:12 | disposition home or self-care (01) ==
LOC: M ED 15:48
DX: G51.0 Bell's palsy (principal); R00.1 Bradycardia, unspecified; E11.9 Type 2 diabetes mellitus without complications; I10 Essential (primary) hypertension; E78.5 Hyperlipidemia, unspecified; N18.9 Chronic kidney disease, unspecified; G47.30 Sleep apnea, unspecified; Z88.0 Allergy status to penicillin; Z91.048 Other nonmedicinal substance allergy status
CPT/HCPCS: 36415; 70450; 70551; 71045; 80047; 80048; 82550; 82553; 84484; 85025; 85610; 85730; 86850; 86900; 86901; 93005; 93041; 94760; 99285; J7512

== ENCOUNTER → 2024-09-18 | Outpatient (CLI) | payer OTHER ==
[~2024-09-18] MED LIST changes: +ECOT81TA5 PO; +INSU100I24; +LABE100T6 PO; +PRED10TA2 PO; +PRED20TA PO; +ROSU20TA86 PO; +TOPR100T PO
[2024-09-18 18:22] LABS: CALCIUM LEVEL 7.5 MG/DL (8.5-10.1); CREATININE FOR GFR 7.5 MG/DL (0.70-1.30); GLOMERULAR FILTRATION RATE 8.1 (>56); POTASSIUM SERUM 3.7 MMOL/L (3.5-5.1)
== END ==
LOC: M PLALAB 15:06
PROVIDERS: ATTEND Dermatology
DX: M06.9 Rheumatoid arthritis, unspecified (principal)

== ENCOUNTER → 2024-11-20 | Outpatient (CLI) | payer OTHER | LOC: M EKG 15:57 | PROVIDERS: ATTEND Nurse Practitioner Family | DX: F41.0 Panic disorder [episodic paroxysmal anxiety] (principal); R93.1 Abnormal findings on diagnostic imaging of heart and coronary circulation ==

== ENCOUNTER 2025-01-09 21:40 | Inpatient (IN) | payer OTHER ==
[~2025-01-09] VITALS: Ht 170.2 cm; Wt 84.6 kg
[~2025-01-09 21:40] MED LIST changes: -INSU100I24; +INSU100I24 SUBQ
[2025-01-09 22:42] LABS: BASO # 0.1 10^3/uL (0.0-0.2); BASO % 0.8 % (0.0-1.0); EOS # 0.8 10^3/uL (0.0-0.5); EOS % 6.0 % (0.0-3.0); LYMPH # 2.1 10^3/uL (1.5-5.0); LYMPH % 16.1 % (24.0-44.0); MONO # 0.7 10^3/uL (0.0-0.8); MONO % 5.3 % (2.0-8.0); NEUTROPHILS # 9.1 10^3/uL (1.5-8.5); NEUTROPHILS % 71.3 % (36.0-66.0); PLATELET COUNT, AUTOMATED 344 10^3/uL (150-450)
[2025-01-09 22:46] LABS: CK-MB VALUE MASS 7.0 NG/ML (<3.6)
[2025-01-09 22:47] LABS: CPK CREATINE PHOSPHOKINASE 974.0 U/L (46-171); MB/CK RELATIVE INDEX 0.71 (< OR =4)
[2025-01-09] MEDS: ACETAMINOPHEN *IV* 1,000 MG in IV 1 EA IV ONE (22:48)
[2025-01-09] MEDS: hydrALAZINE 20 MG/ML 1 ML VIAL IV ONE (22:48)
[2025-01-09 22:53] LABS: CALCIUM LEVEL 7.6 MG/DL (8.5-10.1); CARBON DIOXIDE LEVEL 18.0 MMOL/L (20-31); CHLORIDE LEVEL 106.0 MMOL/L (98-107); CREATININE FOR GFR 15.07 MG/DL (0.70-1.30); GLOMERULAR FILTRATION RATE 3.5 (>56); POTASSIUM SERUM 3.5 MMOL/L (3.5-5.1); SODIUM LEVEL 144.0 MMOL/L (136-145)
[2025-01-09 23:28] LABS: VENOUS BASE EXCESS -5.5 (-2.0-2.0); VENOUS HCO3 17.1 MMOL/L (23.0-27.0); VENOUS O2 SATURATION 98.9 % (60.0-80.0); VENOUS PARTIAL PRESSURE CO2 25.0 mmHg (38.0-50.0); VENOUS PARTIAL PRESSURE O2 151.0 mmHg (30.0-50.0); VENOUS PH 7.452 UNITS (7.330-7.430); VENOUS STANDARD HCO3 20.0 MMOL/L; VENOUS TOTAL CO2 17.8 MMOL/L (24.0-28.0)
[2025-01-10] VITALS (46 sets, daily range): BP systolic 106–197; BP diastolic 65–139; TEMP 97.4–97.8; O2SAT 93–100
[2025-01-10] MEDS ORDERED: hydrALAZINE 20 MG/ML 1 ML VIAL IV PRN (00:35)
[2025-01-10] MEDS: HYDROMORPHONE HCL 0.5 MG/0.5 ML SYRINGE IV PRN ×2 (00:56→11:05)
[2025-01-10] MEDS: DICLOFENAC EPOLAMINE 1.3% PATCH TOP SCH (01:36)
[2025-01-10] MEDS: ONDANSETRON 4MG 2ML VIAL IV PRN (01:44)
[2025-01-10] MEDS: DOXYCYCLINE HYCLATE 100 MG TABLET PO SCH (02:25)
[2025-01-10] MEDS: cefTRIAXone SOD 2 GM in DEXTROSE 5% (D5W) ADV/MINI-BAG 50 ML IV SCH (02:25)
[2025-01-10] MEDS: niCARdipine IV 40 MG in IV 1 EA IV SCH (02:33)
[2025-01-10] MEDS: LIDOCAINE 2% 5 ML JELLY UROJET TOP ONE (02:36)
[2025-01-10 03:05] LABS: ALT/SGPT 18.0 U/L (7.0-40); AST/SGOT 38.0 U/L (<34)
[2025-01-10 04:01] LABS: PLATELET COUNT, AUTOMATED 277 10^3/uL (150-450)
[2025-01-10 04:31] LABS: LDH LACTATE DEHYDROGENASE 323.0 U/L (120-246)
[2025-01-10 04:44] LABS: CALCIUM LEVEL 7.2 MG/DL (8.5-10.1); CARBON DIOXIDE LEVEL 16.0 MMOL/L (20-31); CHLORIDE LEVEL 105.0 MMOL/L (98-107); CREATININE FOR GFR 15.3 MG/DL (0.70-1.30); GLOMERULAR FILTRATION RATE 3.4 (>56); MAGNESIUM LEVEL 1.9 MG/DL (1.8-2.4); POTASSIUM SERUM 2.9 MMOL/L (3.5-5.1); SODIUM LEVEL 142.0 MMOL/L (136-145)
[2025-01-10] MEDS ORDERED: GLUCAGON INJ 1 MG VIAL SC PRN (05:10)
[2025-01-10] MEDS ORDERED: DEXTROSE 50% 50 ML SYRINGE IV PRN (05:10)
[2025-01-10] MEDS ORDERED: GLUCOSE 4 GM CHEW PO PRN (05:10)
[2025-01-10] MEDS: MAG SULF 1GM/100ML (MAG RUN) 1 GM in IV 1 EA IV ONE (05:36)
[2025-01-10 06:01] LABS: ESTIMATED AVERAGE GLUCOSE 126.0 MG/DL (60-110)
[2025-01-10 06:28] LABS: APPEARANCE, URINE CLEAR (CLEAR); BACTERIA, URINE AUTO 1+ (NEGATIVE); BILIRUBIN, URINE AUTO NEGATIVE (NEGATIVE); BLOOD, URINE BLOOD 1+ (NEGATIVE); GLUCOSE, URINE (UA) AUTO 2+ mg/dL (NEGATIVE); KETONE, URINE AUTO NEGATIVE (NEGATIVE); LEUKOCYTE ESTERASE, URINE AUTO NEGATIVE (NEGATIVE); MUCUS, URINE SMALL (NEGATIVE); NITRITE, URINE AUTO NEGATIVE (NEGATIVE); PROTEIN, URINE AUTO 3+ mg/dL (NEGATIVE); RBC, URINE AUTO 0 /HPF (0-3); SPECIFIC GRAVITY URINE AUTO 1.013 (1.002-1.035); SQUAMOUS EPITHELIAL CELL UR AU 0 /HPF (0-6); UROBILINOGEN, URINE AUTO 0.2 mg/dL (0.0-2.0); WBC, URINE AUTO 4 /HPF (0-3)
[2025-01-10] MEDS: PANTOPRAZOLE 40MG VIAL IV SCH (06:30)
[2025-01-10] MEDS: HEPARIN SOD 5000 UNITS/ML 1 ML VIAL/SYRINGE SC SCH (06:31)
[2025-01-10] MEDS: KCL 10MEQ/100ML SWI (KRUN) 10 MEQ in IV 1 EA IV SCH (06:31)
[2025-01-10] MEDS ORDERED: ACETAMINOPHEN 500 MG TAB PO PRN (07:00)
[2025-01-10] MEDS: INSULIN LISPRO (NovoLOG) PER UNIT SC SCH ×2 (07:30→21:00)
[2025-01-10] MEDS ORDERED: SEMA0.257 SUBQ (08:07)
[2025-01-10] MEDS ORDERED: HOME MED LIST COMPLETE! XX SCH (08:10)
[2025-01-10] MEDS ORDERED: HEPARIN 1,000 UNITS/ML 10 ML VIAL (FOR RADIOLOGY & DIALYSIS ONLY) IV STA (09:07)
[2025-01-10] MEDS: HEPARIN 1,000 UNITS/ML 10 ML VIAL (FOR RADIOLOGY & DIALYSIS ONLY) IV STA (09:42)
[2025-01-10] MEDS ORDERED: HEPARIN 1,000 UNITS/ML 10 ML VIAL (FOR RADIOLOGY & DIALYSIS ONLY) IV PRN (10:25)
[2025-01-10] MEDS ORDERED: SODIUM CHLORIDE 0.9% 1000 ML IV PRN (10:25)
[2025-01-10] MEDS: LIDOCAINE 5% PATCH TD PRN (11:08)
[2025-01-10 12:29] LABS: HEPATITIS B SURFACE ANTIBODY POSITIVE (POSITIVE); HEPATITIS C VIRUS ABY INDEX < 0.02 INDEX (<0.8)
[2025-01-10] MEDS: HEPARIN 1,000 UNITS/ML 10 ML VIAL (FOR RADIOLOGY & DIALYSIS ONLY) XX SCH (13:49)
[2025-01-10] MEDS: NS 500 ML IV ONE (16:29)
[2025-01-10 17:12] LABS: LDH LACTATE DEHYDROGENASE 353.0 U/L (120-246)
[2025-01-10 17:20] LABS: ALT/SGPT 14.0 U/L (7.0-40); AST/SGOT 20.0 U/L (<34); CALCIUM LEVEL 7.5 MG/DL (8.5-10.1); CARBON DIOXIDE LEVEL 19.0 MMOL/L (20-31); CHLORIDE LEVEL 104.0 MMOL/L (98-107); CHOLESTEROL LEVEL 200.0 MG/DL (<200); CPK CREATINE PHOSPHOKINASE 1108.0 U/L (46-171); CREATININE FOR GFR 10.53 MG/DL (0.70-1.30); GLOMERULAR FILTRATION RATE 5.3 (>56); PHOSPHORUS LEVEL 4.2 MG/DL (2.5-4.9); POTASSIUM SERUM 3.3 MMOL/L (3.5-5.1); SODIUM LEVEL 142.0 MMOL/L (136-145); TRIGLYCERIDES LEVEL 105.0 MG/DL (<150)
[2025-01-11] VITALS (25 sets, daily range): BP systolic 139–207; BP diastolic 88–117; TEMP 98–99.1; O2SAT 94–100
[2025-01-11 05:20] LABS: PLATELET COUNT, AUTOMATED 260 10^3/uL (150-450)
[2025-01-11] MEDS: hydrALAZINE 20 MG/ML 1 ML VIAL IV PRN (05:36)
[2025-01-11 05:51] LABS: IRON (FE) 49.0 UG/DL (65-175); PERCENT SATURATION 27.8 % (19.7-50.0)
[2025-01-11 05:57] LABS: CALCIUM LEVEL 7.0 MG/DL (8.5-10.1); CARBON DIOXIDE LEVEL 22.0 MMOL/L (20-31); CHLORIDE LEVEL 105.0 MMOL/L (98-107); CREATININE FOR GFR 12.54 MG/DL (0.70-1.30); GLOMERULAR FILTRATION RATE 4.3 (>56); MAGNESIUM LEVEL 2.1 MG/DL (1.8-2.4); POTASSIUM SERUM 3.7 MMOL/L (3.5-5.1); PTH INTACT 672.7 PG/ML (18.5-88.0); SODIUM LEVEL 143.0 MMOL/L (136-145); TOTAL 25(OH) VITAMIN D 9.2 NG/ML (20.0-100.0)
[2025-01-11] MEDS ORDERED: HEPARIN 1,000 UNITS/ML 10 ML VIAL (FOR RADIOLOGY & DIALYSIS ONLY) IV PRN (06:00)
[2025-01-11] MEDS ORDERED: SODIUM CHLORIDE 0.9% 1000 ML IV PRN (06:00)
[2025-01-11] MEDS ORDERED: HYDROMORPHONE HCL 0.5 MG/0.5 ML SYRINGE IV PRN ×2 (08:10)
[2025-01-11] MEDS: CALCITRIOL 0.25 MCG CAP (S0169) PO SCH (09:00)
[2025-01-11] MEDS ORDERED: ACETAMINOPHEN 500 MG TAB PO PRN (12:30)
[2025-01-11] MEDS: HEPARIN 1,000 UNITS/ML 10 ML VIAL (FOR RADIOLOGY & DIALYSIS ONLY) XX SCH (13:14)
[2025-01-11] MEDS: ACETAMINOPHEN *IV* 1,000 MG in IV 1 EA IV PRN (13:40)
[2025-01-11] MEDS: amLODIPine 5 MG TAB PO SCH (17:29)
[2025-01-12] VITALS (19 sets, daily range): BP systolic 138–195; BP diastolic 77–129; TEMP 97.6–100.2; O2SAT 95–100
[2025-01-12 04:32] LABS: PLATELET COUNT, AUTOMATED 275 10^3/uL (150-450)
[2025-01-12 05:19] LABS: CPK CREATINE PHOSPHOKINASE 1209.0 U/L (46-171)
[2025-01-12 05:21] LABS: ALT/SGPT 14.0 U/L (7.0-40); AST/SGOT 19.0 U/L (<34); CALCIUM LEVEL 8.2 MG/DL (8.5-10.1); CARBON DIOXIDE LEVEL 23.0 MMOL/L (20-31); CHLORIDE LEVEL 107.0 MMOL/L (98-107); CREATININE FOR GFR 9.89 MG/DL (0.70-1.30); GLOMERULAR FILTRATION RATE 5.8 (>56); MAGNESIUM LEVEL 2.1 MG/DL (1.8-2.4); POTASSIUM SERUM 3.8 MMOL/L (3.5-5.1); SODIUM LEVEL 144.0 MMOL/L (136-145)
[2025-01-12] MEDS: METOPROLOL 5 MG/5 ML VIAL IV SCH (17:57)
[2025-01-12] MEDS: NITROGLYCERIN 0.4 MG SUBL TABLET SL STA (18:46)
[2025-01-12 19:03] LABS: CK-MB VALUE MASS 5.5 NG/ML (<3.6)
[2025-01-12 19:05] LABS: CPK CREATINE PHOSPHOKINASE 1106.0 U/L (46-171); MB/CK RELATIVE INDEX 0.49 (< OR =4)
[2025-01-12] MEDS ORDERED: NITROGLYCERIN 0.4 MG SUBL TABLET SL PRN (19:20)
[2025-01-12] MEDS: FAMOTIDINE 20 MG/2 ML VIAL IVP ONE (20:15)
[2025-01-12] MEDS: ASPIRIN 81 MG CHEWABLE TABLET PO ONE (20:15)
[2025-01-12] MEDS: NITROGLYCERIN 0.4 MG/HR PATCH TD SCH (21:08)
[2025-01-12 22:20] LABS: CK-MB VALUE MASS 7.5 NG/ML (<3.6)
[2025-01-12 22:25] LABS: CPK CREATINE PHOSPHOKINASE 1086.0 U/L (46-171); MB/CK RELATIVE INDEX 0.69 (< OR =4)
[2025-01-13] VITALS (13 sets, daily range): BP systolic 143–196; BP diastolic 86–124; TEMP 97.4–98.8; O2SAT 94–99
[2025-01-13 00:03] LABS: CK-MB VALUE MASS 5.5 NG/ML (<3.6)
[2025-01-13 00:19] LABS: CPK CREATINE PHOSPHOKINASE 983.0 U/L (46-171); MB/CK RELATIVE INDEX 0.55 (< OR =4)
[2025-01-13 05:47] LABS: PLATELET COUNT, AUTOMATED 245 10^3/uL (150-450)
[2025-01-13] MEDS ORDERED: SODIUM CHLORIDE 0.9% 1000 ML IV PRN (06:00)
[2025-01-13] MEDS ORDERED: HEPARIN 1,000 UNITS/ML 10 ML VIAL (FOR RADIOLOGY & DIALYSIS ONLY) IV PRN (06:00)
[2025-01-13 06:13] LABS: CPK CREATINE PHOSPHOKINASE 828.0 U/L (46-171)
[2025-01-13 06:19] LABS: ALT/SGPT 10.0 U/L (7.0-40); AST/SGOT 12.0 U/L (<34); CALCIUM LEVEL 8.0 MG/DL (8.5-10.1); CARBON DIOXIDE LEVEL 22.0 MMOL/L (20-31); CHLORIDE LEVEL 107.0 MMOL/L (98-107); CK-MB VALUE MASS 4.8 NG/ML (<3.6); CREATININE FOR GFR 11.29 MG/DL (0.70-1.30); GLOMERULAR FILTRATION RATE 4.9 (>56); MAGNESIUM LEVEL 2.0 MG/DL (1.8-2.4); MB/CK RELATIVE INDEX 0.57 (< OR =4); POTASSIUM SERUM 4.1 MMOL/L (3.5-5.1); SODIUM LEVEL 142.0 MMOL/L (136-145)
[2025-01-13] MEDS: ACETAMINOPHEN 500 MG TAB PO ONE (08:00)
[2025-01-13] MEDS: HEPARIN 1,000 UNITS/ML 10 ML VIAL (FOR RADIOLOGY & DIALYSIS ONLY) XX SCH (09:30)
[2025-01-13 09:41] LABS: C REACTIVE PROTEIN QUANTITATIV 4.39 MG/DL (<1.0)
[2025-01-13 09:54] LABS: ERYTHROCYTE SEDIMENTATION RATE 49 mm/hr (0-20)
[2025-01-13 10:01] LABS: BASO # 0.1 10^3/uL (0.0-0.2); BASO % 0.8 % (0.0-1.0); EOS # 1.0 10^3/uL (0.0-0.5); EOS % 9.4 % (0.0-3.0); LYMPH # 1.6 10^3/uL (1.5-5.0); LYMPH % 14.8 % (24.0-44.0); MONO # 0.9 10^3/uL (0.0-0.8); MONO % 8.1 % (2.0-8.0); NEUTROPHILS # 7.1 10^3/uL (1.5-8.5); NEUTROPHILS % 66.6 % (36.0-66.0)
[2025-01-13] MEDS: IRON SUCROSE 100 MG/5 ML VIAL IV SCH (10:08)
[2025-01-13] MEDS: DARBEPOETIN 100 MCG/0.5 ML *DIALYSIS* SYRINGE IV SCH (11:06)
[2025-01-13] MEDS: MIDAZOLAM INJ 2 MG/2 ML VIAL IV PRN (13:54)
[2025-01-13] MEDS: NS (Normal Saline) 0.9% 1,000 ML IV SCH (13:55)
[2025-01-13] MEDS: ceFAZolin SODIUM 2 GM in DEXTROSE 5% (D5W) ADV/MINI-BAG 50 ML IV ONE (13:55)
[2025-01-13] MEDS: HEPARIN 1,000 UNITS/ML 10 ML VIAL (FOR RADIOLOGY & DIALYSIS ONLY) IV PRN (14:17)
[2025-01-13] MEDS: LIDOCAINE 1% MDV 20 ML VIAL SC SCH (14:17)
[2025-01-13] MEDS ORDERED: MORPHINE 10 MG/ML 1 ML VIAL IV ONE (15:45)
[2025-01-13] MEDS: MORPHINE 10 MG/ML 1 ML VIAL IV ONE (16:04)
[2025-01-13] MEDS: amLODIPine 5 MG TAB PO ONE (16:05)
[2025-01-13] MEDS: MORPHINE SULFATE TAB IMM. REL. 30 MG PO ONE (17:00)
[2025-01-13] MEDS: METOPROLOL TART 25 MG TABLET PO SCH (17:19)
[2025-01-13] MEDS ORDERED: hydrALAZINE 20 MG/ML 1 ML VIAL IV PRN (20:25)
[2025-01-13] MEDS: METOPROLOL SUCC. 50 MG *XL* TAB PO SCH (20:28)
[2025-01-14 04:00] VITALS: BP 124/79; TEMP 97.6; O2SAT 99
[2025-01-14] MEDS ORDERED: MORPHINE SULFATE TAB IMM. REL. 15 MG PO PRN (07:25)
[2025-01-14 08:00] VITALS: BP 127/80; TEMP 97.4; O2SAT 100
[2025-01-14] MEDS: ASPIRIN 81 MG CHEWABLE TABLET PO SCH (08:38)
[2025-01-14] MEDS: amLODIPine 10 MG TAB PO SCH (08:41)
[2025-01-14 11:22] LABS: PLATELET COUNT, AUTOMATED 281 10^3/uL (150-450)
[2025-01-14 11:55] LABS: ALT/SGPT 33.0 U/L (7.0-40); AST/SGOT 45.0 U/L (<34); CALCIUM LEVEL 8.4 MG/DL (8.5-10.1); CARBON DIOXIDE LEVEL 22.0 MMOL/L (20-31); CHLORIDE LEVEL 105.0 MMOL/L (98-107); CREATININE FOR GFR 9.51 MG/DL (0.70-1.30); GLOMERULAR FILTRATION RATE 6.0 (>56); MAGNESIUM LEVEL 2.0 MG/DL (1.8-2.4); POTASSIUM SERUM 4.2 MMOL/L (3.5-5.1); SODIUM LEVEL 141.0 MMOL/L (136-145)
[2025-01-14 15:00] VITALS: BP 152/95; TEMP 98.8; O2SAT 97
[2025-01-14 20:00] VITALS: BP 154/95; TEMP 98; O2SAT 99
[2025-01-15] VITALS (10 sets, daily range): BP systolic 142–183; BP diastolic 82–115; TEMP 97.4–98; O2SAT 96–100
[2025-01-15] MEDS ORDERED: SODIUM CHLORIDE 0.9% 1000 ML IV PRN (06:00)
[2025-01-15] MEDS ORDERED: HEPARIN 1,000 UNITS/ML 10 ML VIAL (FOR RADIOLOGY & DIALYSIS ONLY) IV PRN (06:00)
[2025-01-15 06:09] LABS: PLATELET COUNT, AUTOMATED 271 10^3/uL (150-450)
[2025-01-15 06:32] LABS: ALT/SGPT 15.0 U/L (7.0-40); AST/SGOT 25.0 U/L (<34); CALCIUM LEVEL 8.5 MG/DL (8.5-10.1); CARBON DIOXIDE LEVEL 22.0 MMOL/L (20-31); CHLORIDE LEVEL 104.0 MMOL/L (98-107); CREATININE FOR GFR 10.89 MG/DL (0.70-1.30); GLOMERULAR FILTRATION RATE 5.1 (>56); MAGNESIUM LEVEL 2.1 MG/DL (1.8-2.4); POTASSIUM SERUM 4.0 MMOL/L (3.5-5.1); SODIUM LEVEL 141.0 MMOL/L (136-145)
[2025-01-15] MEDS: METOPROLOL SUCC. 25 MG *XL* TAB PO SCH (09:00)
[2025-01-15] MEDS ORDERED: AMLO1TAB25 PO (13:00)
[2025-01-15] MEDS ORDERED: LISI40TA10 PO (13:00)
[2025-01-15] MEDS ORDERED: TOPR25TA PO (13:05)
[2025-01-15] MEDS ORDERED: LIDO5TD TD (13:06)
[2025-01-15] MEDS ORDERED: **hydrALAZINE HCL** 25 MG TAB PO PRN (13:15)
[2025-01-15] MEDS ORDERED: HYDR25TA88 PO (13:15)
[2025-01-15] MEDS: HEPARIN 1,000 UNITS/ML 10 ML VIAL (FOR RADIOLOGY & DIALYSIS ONLY) XX SCH (13:18)
[2025-01-15] MEDS ORDERED: **hydrALAZINE** 50 MG TAB PO PRN (17:35)
[2025-01-15] MEDS: **hydrALAZINE HCL** 25 MG TAB PO ONE ×2 (17:57→20:50)
[2025-01-15] MEDS: METOPROLOL SUCC. 25 MG *XL* TAB PO ONE (17:57)
[2025-01-15] MEDS: NITROGLYCERIN 2% OINT 1 GM *U/D* PKT TOP ONE (17:58)
[2025-01-15] MEDS ORDERED: ACETAMINOPHEN 500 MG TAB PO PRN (20:45)
[2025-01-15] MEDS ORDERED: METO1TAB33 PO (20:46)
[2025-01-15] MEDS ORDERED: HYDR50TA47 PO (20:46)
[2025-01-15] MEDS: **hydrALAZINE** 50 MG TAB PO ONE (22:45)
[2025-01-16] MEDS: NITROGLYCERIN 2% OINT 1 GM *U/D* PKT TOP SCH (05:58)
[2025-01-16 06:01] VITALS: BP 176/116; TEMP 97.5; O2SAT 96
[2025-01-16 06:02] VITALS: BP 162/100
[2025-01-16] MEDS ORDERED: TOPR50TA PO (06:43)
[2025-01-16] MEDS ORDERED: HYDR25TA88 PO (06:45)
[2025-01-16 07:10] LABS: PLATELET COUNT, AUTOMATED 327 10^3/uL (150-450)
[2025-01-16 07:17] VITALS: BP 170/102
[2025-01-16] MEDS: METOPROLOL SUCC. 50 MG *XL* TAB PO ONE (07:20)
[2025-01-16] MEDS: **hydrALAZINE HCL** 25 MG TAB PO ONE (07:21)
[2025-01-16 07:37] LABS: ALT/SGPT < 9 U/L (7.0-40); AST/SGOT 20 U/L (<34); CALCIUM LEVEL 9.0 MG/DL (8.5-10.1); CARBON DIOXIDE LEVEL 25 MMOL/L (20-31); CHLORIDE LEVEL 105 MMOL/L (98-107); CREATININE FOR GFR 7.96 MG/DL (0.70-1.30); GLOMERULAR FILTRATION RATE 7.5 (>56); MAGNESIUM LEVEL 2.0 MG/DL (1.8-2.4); POTASSIUM SERUM 4.0 MMOL/L (3.5-5.1); SODIUM LEVEL 143 MMOL/L (136-145)
[2025-01-16 08:43] VITALS: BP 154/103
[2025-01-16] MEDS: amLODIPine 10 MG TAB PO SCH (08:43)
[2025-01-16] MEDS ORDERED: METOPROLOL SUCC. 100 MG *XL* TAB PO SCH (09:00)
[2025-01-16] MEDS ORDERED: **hydrALAZINE** 50 MG TAB PO SCH (09:00)
== END 2025-01-16 09:23 | disposition home or self-care (01) | DRG 674 ==
LOC: M ED 21:40 → M ED INP 01-10 02:03 → M ICU 01-10 08:45 → M MS5PR 01-15 09:29
PROVIDERS: ADMIT Student in an Organized Health Care Education/Training Program; ATTEND General Practice
PROC: 05HN33Z Insertion of Infusion Device into Left Internal Jugular Vein, Percutaneous Approach (ICD-10-PCS; 2025-01-10)
PROC: 5A1D70Z Performance of Urinary Filtration, Intermittent, Less than 6 Hours Per Day (ICD-10-PCS; 2025-01-13)
PROC: 02HV33Z Insertion of Infusion Device into Superior Vena Cava, Percutaneous Approach (ICD-10-PCS; 2025-01-13)
PROC: 0JH63XZ Insertion of Tunneled Vascular Access Device into Chest Subcutaneous Tissue and Fascia, Percutaneous Approach (ICD-10-PCS; principal; 2025-01-13 13:00)
DX: I12.0 Hypertensive chronic kidney disease with stage 5 chronic kidney disease or end stage renal disease (principal); N18.6 End stage renal disease; E87.20 Acidosis, unspecified; J90 Pleural effusion, not elsewhere classified; J98.11 Atelectasis; N17.9 Acute kidney failure, unspecified; M62.82 Rhabdomyolysis; I25.10 Atherosclerotic heart disease of native coronary artery without angina pectoris; G47.33 Obstructive sleep apnea (adult) (pediatric); E87.6 Hypokalemia; E66.811 Obesity, class 1; Z68.30 Body mass index [BMI] 30.0-30.9, adult; K57.90 Diverticulosis of intestine, part unspecified, without perforation or abscess without bleeding; K59.00 Constipation, unspecified; M25.462 Effusion, left knee; D63.1 Anemia in chronic kidney disease; E78.5 Hyperlipidemia, unspecified; K20.90 Esophagitis, unspecified without bleeding; E11.65 Type 2 diabetes mellitus with hyperglycemia; Z91.199 Patient's noncompliance with other medical treatment and regimen due to unspecified reason; Z86.73 Personal history of transient ischemic attack (TIA), and cerebral infarction without residual deficits; I16.0 Hypertensive urgency; Z79.4 Long term (current) use of insulin; Z79.82 Long term (current) use of aspirin; Z79.899 Other long term (current) drug therapy; E11.22 Type 2 diabetes mellitus with diabetic chronic kidney disease

== ENCOUNTER 2025-01-16 20:48 | Emergency (ER) | payer OTHER ==
[~2025-01-16] VITALS: Ht 170.2 cm; Wt 82.1 kg
[~2025-01-16 20:48] MED LIST changes: +AMLO1TAB25 PO; +HYDR50TA47 PO; +LIDO5TD TD; +LISI40TA10 PO; +SEMA0.257 SUBQ; +TOPR50TA PO
[2025-01-16 22:00] VITALS: BP 164/97; TEMP 98.1; O2SAT 98
[2025-01-16] MEDS: SILVER NITRATE APPLICATOR (1 = QTY 10) TOP ONE (22:05)
== END 2025-01-16 23:29 | disposition home or self-care (01) ==
LOC: M ED 20:48
DX: Z48.01 Encounter for change or removal of surgical wound dressing (principal); N18.30 Chronic kidney disease, stage 3 unspecified; E11.9 Type 2 diabetes mellitus without complications; I10 Essential (primary) hypertension; E78.5 Hyperlipidemia, unspecified; G47.30 Sleep apnea, unspecified; Z86.79 Personal history of other diseases of the circulatory system; Z79.82 Long term (current) use of aspirin; Z79.4 Long term (current) use of insulin; Z79.899 Other long term (current) drug therapy; Z91.09 Other allergy status, other than to drugs and biological substances

== ENCOUNTER 2025-02-07 22:54 | Observation (INO) | payer OTHER ==
[~2025-02-07] VITALS: Ht 170.2 cm; Wt 82.4 kg
[2025-02-07 23:37] LABS: BASO # 0.1 10^3/uL (0.0-0.2); BASO % 0.6 % (0.0-1.0); EOS # 0.6 10^3/uL (0.0-0.5); EOS % 5.6 % (0.0-3.0); LYMPH # 2.1 10^3/uL (1.5-5.0); LYMPH % 18.0 % (24.0-44.0); MONO # 0.8 10^3/uL (0.0-0.8); MONO % 6.8 % (2.0-8.0); NEUTROPHILS # 7.9 10^3/uL (1.5-8.5); NEUTROPHILS % 68.5 % (36.0-66.0); PLATELET COUNT, AUTOMATED 285 10^3/uL (150-450)
[2025-02-07 23:55] LABS: INR 0.96
[2025-02-08 00:22] LABS: ALT/SGPT 24 U/L (7.0-40); AST/SGOT 29 U/L (<34); CALCIUM LEVEL 8.0 MG/DL (8.5-10.1); CARBON DIOXIDE LEVEL 31 MMOL/L (20-31); CHLORIDE LEVEL 98 MMOL/L (98-107); CK-MB VALUE MASS 2.1 NG/ML (<3.6); CREATININE FOR GFR 4.60 MG/DL (0.70-1.30); GLOMERULAR FILTRATION RATE 14.4 (>56); POTASSIUM SERUM 3.7 MMOL/L (3.5-5.1); SODIUM LEVEL 140 MMOL/L (136-145)
[2025-02-08 00:24] LABS: CPK CREATINE PHOSPHOKINASE 550 U/L (46-171); MB/CK RELATIVE INDEX 0.38 (< OR =4)
[2025-02-08] MEDS ORDERED: GLUCOSE 4 GM CHEW PO PRN (03:45)
[2025-02-08] MEDS ORDERED: MAALOX 30 ML SUSP *UDC PO PRN (03:45)
[2025-02-08] MEDS ORDERED: DEXTROSE 50% 50 ML SYRINGE IV PRN (03:45)
[2025-02-08] MEDS ORDERED: ACETAMINOPHEN 325 MG TAB PO PRN (03:45)
[2025-02-08] MEDS ORDERED: MOM 30 ML SUSPENSION UDC PO PRN (03:45)
[2025-02-08] MEDS ORDERED: GLUCAGON INJ 1 MG VIAL SC PRN (03:45)
[2025-02-08 05:00] VITALS: BP 153/86; TEMP 97.7; O2SAT 100
[2025-02-08 06:54] LABS: PLATELET COUNT, AUTOMATED 245 10^3/uL (150-450)
[2025-02-08 07:06] LABS: INR 1.0
[2025-02-08 07:23] LABS: CALCIUM LEVEL 7.7 MG/DL (8.5-10.1); CARBON DIOXIDE LEVEL 32.0 MMOL/L (20-31); CHLORIDE LEVEL 99.0 MMOL/L (98-107); CREATININE FOR GFR 6.11 MG/DL (0.70-1.30); GLOMERULAR FILTRATION RATE 10.3 (>56); MAGNESIUM LEVEL 1.9 MG/DL (1.8-2.4); POTASSIUM SERUM 3.6 MMOL/L (3.5-5.1); SODIUM LEVEL 141.0 MMOL/L (136-145)
[2025-02-08] MEDS: INSULIN LISPRO (NovoLOG) PER UNIT SC SCH (08:31)
[2025-02-08] MEDS: HEPARIN SOD 5000 UNITS/ML 1 ML VIAL/SYRINGE SC SCH (08:32)
[2025-02-08] MEDS: DOCUSATE SODIUM 100 MG CAPSULE PO SCH (08:32)
[2025-02-08] MEDS ORDERED: **NOTE PATIENT COMMENT** MISC XX SCH (09:25)
[2025-02-08] MEDS: ASPIRIN 81 MG ENTERIC TABLET PO SCH (11:30)
[2025-02-08 12:00] VITALS: BP 136/78; TEMP 98.4; O2SAT 99
[2025-02-08 12:32] VITALS: BP 136/78
[2025-02-08] MEDS: METOPROLOL SUCC. 50 MG *XL* TAB PO SCH (12:32)
[2025-02-08] MEDS ORDERED: ROSUVASTATIN 10 MG TAB PO SCH (21:00)
== END 2025-02-08 12:43 | disposition home or self-care (01) ==
LOC: M ED 22:54 → M ED INP 22:55 → M MS4PR 02-08 05:10
PROVIDERS: ADMIT Student in an Organized Health Care Education/Training Program; ATTEND Student in an Organized Health Care Education/Training Program
DX: I95.3 Hypotension of hemodialysis (principal); D63.8 Anemia in other chronic diseases classified elsewhere; N18.6 End stage renal disease; I12.0 Hypertensive chronic kidney disease with stage 5 chronic kidney disease or end stage renal disease; Z99.2 Dependence on renal dialysis; E11.22 Type 2 diabetes mellitus with diabetic chronic kidney disease; E78.5 Hyperlipidemia, unspecified; E66.9 Obesity, unspecified; Z86.73 Personal history of transient ischemic attack (TIA), and cerebral infarction without residual deficits; Z79.4 Long term (current) use of insulin; Z79.899 Other long term (current) drug therapy
CPT/HCPCS: 36415; 70450; 71045; 80048; 80076; 82550; 82553; 83690; 83735; 84484; 85025; 85027; 85610; 85730; 93005; 93041; 94760; 99285; J1815